=== PATIENT | female | born 1945 | race Hispanic/Latino ===

== ENCOUNTER 2017-07-11 16:23 | Emergency (ER) | payer MEDICARE ==
[2017-07-11 18:00] LABS: Bilirubin,Urine NEG (Negative); Blood,Urine NEG (Negative); Color,Urine Straw (Yellow); Protein,Urine <15 mg/dL mg/dL (Negative); Urobilinogen,Urine < 2.0 mg/dL (<2.0); WBC,Urine < 1.0 /HPF (0.0-6.0)
[2017-07-11] MEDS ORDERED: MORPHINE IV ONE (18:02)
[2017-07-11] MEDS ORDERED: VALIUM PO ONE (18:02)
[2017-07-11 18:03] LABS: Basophils # (Auto) 0.1 K/mm3 (0.0-0.1); Basophils % (Auto) 0.4 % (0.0-1.8); Eosinophils # (Auto) 0.2 K/mm3 (0.0-0.4); Eosinophils % (Auto) 1.2 % (0.0-4.3); Hematocrit 40.1 % (30.3-42.9); Lymphocytes % (Auto) 15.3 % (13.4-35.0); Mean Corpuscular HGB Conc 32 % (30-34); Mean Corpuscular Hemoglobin 28 pg (28-32); Mean Corpuscular Volume 86 fl (79-97); Monocytes # (Auto) 0.7 K/mm3 (0.0-0.8); Monocytes % (Auto) 5.5 % (0.0-7.3); Platelet Count 283 K/mm3 (140-440); Red Blood Count 4.66 M/mm3 (3.65-5.03); Red Cell Distribution Width 17.4 % (13.2-15.2)
[2017-07-11] MEDS ORDERED: PROVENTIL IH ONE (18:05)
[2017-07-11] MEDS ORDERED: ATROVENT IH ONE (18:05)
--- NOTE | 2017-07-11 18:05 | Emergency Department Report ---
ED Back Pain/Injury HPI - General Chief Complaint: Back Pain/Injury Stated Complaint: BACK PAIN Time Seen by Provider: 07/11/17 17:54 Source: patient Limitations: Altered Mental Status - History of Present Illness Initial Comments: Patient is a 71-year-old female who is complaining of back pain. Patient states that she has chronic back pain secondary to 4 compression fractures that are chronic. Patient takes Gregory codon and morphine extended release at home but states that the Percocet she took today didn't help her pain. Patient denies any recent falls or trauma. Patient denies dysuria fever cough abdominal pain. Patient states pain is located in the right lower back she believes this is muscular because she is having a hard time moving. Patient was unable to stand up unassisted today. Patient also has a history of COPD and is on oxygen most of the time. Patient is due for breathing treatments today she has mild shortness of breath. Place: home Radiation: none Severity scale (0 -10): 10 Quality: aching Consistency: constant - Related Data Home Medications Medication Instructions Recorded Confirmed Last Taken Insulin NPH/Regular [NovoLIN 70/30] 0 units SUB-Q PRN PRN 02/27/13 12/23/14 Unknown Morphine ER [Ms Contin ER] 1 tab Q6HR 02/27/13 12/23/14 Unknown Oxycodone HCl/Acetaminophen 1 each PO Q6HR PRN 02/27/13 12/23/14 Unknown [Percocet 10/325 mg] Warfarin Sodium [Jantoven] 5 mg PO QDAY 02/27/13 12/23/14 06/13/14 12:00 ALBUTEROL Inhaler [ProAir HFA 2 puff IH QID PRN 06/14/14 12/23/14 Unknown Inhaler] Gabapentin 300 mg PO BID 06/14/14 12/23/14 Unknown NexIUM 1 tab PO DAILY 07/27/14 12/23/14 Unknown Augmentin 500 MG TAB 1 tab PO BID 11/11/14 12/23/14 Unknown Previous Rx's Medication Instructions Recorded Last Taken Type Diazepam [Valium] 5 mg PO TID PRN #12 tablet 07/11/17 Unknown Rx Allergies Allergy/AdvReac Type Severity Reaction Status Date / Time levofloxacin [From Levaquin] Allergy Rash Verified 02/27/13 19:34 sulfamethoxazole Allergy Hives Verified 11/11/14 11:38 [From Bactrim] trimethoprim [From Bactrim] Allergy Hives Verified 11/11/14 11:38 ED Review of Systems ROS: Stated complaint: BACK PAIN Other details as noted in HPI Comment: All other systems reviewed and negative ED Past Medical Hx - Past Medical History Previous Medical History?: Yes Hx Diabetes: Yes Hx Deep Vein Thrombosis: Yes Hx Arthritis: Yes Hx COPD: Yes Additional medical history: PVD-reportedly takes warfarin for this - Surgical History Past Surgical History?: Yes Additional Surgical History: L mastectomy, bilateral lower extremity embolectomy 1995 - Social History Smoking Status: Current Every Day Smoker Substance Use Type: Alcohol, Prescribed - Medications Home Medications: Home Medications Medication Instructions Recorded Confirmed Last Taken Type Insulin NPH/Regular [NovoLIN 70/30] 0 units SUB-Q PRN PRN 02/27/13 12/23/14 Unknown History Morphine ER [Ms Contin ER] 1 tab Q6HR 02/27/13 12/23/14 Unknown History Oxycodone HCl/Acetaminophen 1 each PO Q6HR PRN 02/27/13 12/23/14 Unknown History [Percocet 10/325 mg] Warfarin Sodium [Jantoven] 5 mg PO QDAY 02/27/13 12/23/14 06/13/14 12:00 History ALBUTEROL Inhaler [ProAir HFA 2 puff IH QID PRN 06/14/14 12/23/14 Unknown History Inhaler] Gabapentin 300 mg PO BID 06/14/14 12/23/14 Unknown History NexIUM 1 tab PO DAILY 07/27/14 12/23/14 Unknown History Augmentin 500 MG TAB 1 tab PO BID 11/11/14 12/23/14 Unknown History Diazepam [Valium] 5 mg PO TID PRN #12 tablet 07/11/17 Unknown Rx ED Physical Exam - General Limitations: Altered Mental Status General appearance: alert, in no apparent distress - Head Head exam: Present: atraumatic, normocephalic - Eye Eye exam: Present: normal appearance - ENT ENT exam: Present: mucous membranes moist - Neck Neck exam: Present: normal inspection - Respiratory Respiratory exam: Present: wheezes. Absent: normal lung sounds bilaterally, respiratory distress, rales - Cardiovascular Cardiovascular Exam: Present: regular rate, normal rhythm. Absent: systolic murmur, diastolic murmur, rubs, gallop - GI/Abdominal GI/Abdominal exam: Present: soft, normal bowel sounds. Absent: distended, tenderness, guarding, rebound - Extremities Exam Extremities exam: Present: normal inspection - Back Exam Back exam: Present: normal inspection - Neurological Exam Neurological exam: Present: alert, oriented X3 - Psychiatric Psychiatric exam: Present: normal affect, normal mood - Skin Skin exam: Present: warm, dry, intact, normal color. Absent: rash ED Course Vital Signs 07/11/17 07/11/17 07/11/17 18:08 18:20 18:31 Temperature 97.8 F Pulse Rate 91 H Pulse Rate [ Anterior Bilateral Throughout] Respiratory 20 Rate Respiratory Rate [Anterior Bilateral Throughout] Blood Pressure 135/71 119/56 Blood Pressure 135/71 [Left] O2 Sat by Pulse 98 99 Oximetry 07/11/17 07/11/17 18:49 19:00 Temperature Pulse Rate Pulse Rate [ 94 H Anterior Bilateral Throughout] Respiratory Rate Respiratory 20 Rate [Anterior Bilateral Throughout] Blood Pressure 126/57 Blood Pressure [Left] O2 Sat by Pulse 100 Oximetry - Reevaluation(s) Reevaluation #1: 07/11/17 19:38 Patient's back pain has improved after pain meds and Valium. Patient has received a nebulized treatment and her wheezing is improved and she is no longer feeling short of breath. Patient be discharged home will add Valium to her pain regimen should be discharged home ED Medical Decision Making - Lab Data Result diagrams: 07/11/17 17:49 07/11/17 17:49 Critical care attestation.: If time is entered above; I have spent that time in minutes in the direct care of this critically ill patient, excluding procedure time. ED Disposition Clinical Impression: COPD exacerbation Chronic back pain Qualifiers: Back pain location: low back pain Back pain laterality: right Sciatica presence : without sciatica Qualified Code(s): M54.5 - Low back pain; G89.29 - Other chronic pain Disposition: - TO HOME OR SELFCARE Is pt being admited?: No Does the pt Need Aspirin: No Condition: Stable Instructions: Chronic Obstructive Pulmonary Disease (ED), Low Back Strain (ED) Prescriptions: Diazepam [Valium] 5 mg PO TID PRN #12 tablet PRN Reason: Spasms Referrals: GISELE TABARES MD [Primary Care Provider] - 3-5 Days
[2017-07-11 18:08] LABS: BUN/Creatinine Ratio 22; Blood Urea Nitrogen 11 mg/dL (7-17); Calcium 8.6 mg/dL (8.4-10.2); Hemolysis Index 33
--- NOTE | 2017-07-11 19:07 | XRay Report ---
FINAL REPORT PROCEDURE: Portable chest x-ray TECHNIQUE: Chest radiograph portable AP view. CPT 16937 HISTORY: ABY COMPARISON: No prior studies are available for comparison. FINDINGS: Heart size and pulmonary vasculature appear normal. Lungs appear hyperinflated. Interstitial markings appear coarsened suggesting mild fibrosis. No focal infiltrates masses or effusions are identified. Large hiatal hernia appears to be present. Bones are diffusely demineralized. IMPRESSION: COPD suspected with mild fibrosis. No focal infiltrates are seen. Large hiatal hernia. Osteoporosis..
[2017-07-12 00:03] VITALS: BP 128/76
== END 2017-07-12 00:49 | disposition home or self-care (01) ==
LOC: ED 16:23
DX: J44.1 Chronic obstructive pulmonary disease with (acute) exacerbation (principal); M54.5 Low back pain; G89.29 Other chronic pain
CPT/HCPCS: 36415; 71045; 80048; 81001; 85025; 96374; 99284; J2270

== ENCOUNTER 2017-09-28 02:58 | Inpatient (IN) | payer MEDICARE ==
[2017-09-28] MEDS ORDERED: TYLENOL PO ONE (03:31)
[2017-09-28 04:18] LABS: Alanine Aminotransferase 9 units/L (7-56); Albumin 3.7 g/dL (3.9-5); BUN/Creatinine Ratio 25; Blood Urea Nitrogen 10 mg/dL (7-17); Calcium 8.4 mg/dL (8.4-10.2); Hemolysis Index 0
[2017-09-28 04:23] LABS: Bilirubin,Urine NEG (Negative); Blood,Urine NEG (Negative); Color,Urine Yellow (Yellow); Protein,Urine <15 mg/dL mg/dL (Negative); Urobilinogen,Urine < 2.0 mg/dL (<2.0)
[2017-09-28 04:24] LABS: Hematocrit 26.3 % (30.3-42.9); Hemoglobin 7.9 gm/dl (10.1-14.3); Mean Corpuscular HGB Conc 30 % (30-34); Mean Corpuscular Volume 75 fl (79-97); Platelet Count 355 K/mm3 (140-440); Red Blood Count 3.51 M/mm3 (3.65-5.03)
[2017-09-28 04:25] LABS: Mean Corpuscular Hemoglobin 23 pg (28-32)
--- NOTE | 2017-09-28 04:33 | XRay Report ---
FINAL REPORT PROCEDURE: XR CHEST 1V AP TECHNIQUE: Chest radiograph anteroposterior view. CPT 24355 HISTORY: ABY COMPARISON: 07/11/2017 FINDINGS: Heart: Normal. Mediastinum/Vessels: There is a soft tissue density in the retrocardiac space, a hiatal hernia is noted.. Lungs/Pleural space: COPD with mild fibrosis. No consolidation or effusion. Bony thorax: Moderate degenerative changes of the thoracic spine. There is generalized osteopenia.. Life support devices: None. IMPRESSION: There is no evidence of an acute cardiopulmonary process. Mild COPD..
[2017-09-28 05:28] LABS: Anisocytosis 1+; Band Neutrophils # (Manual) 2.4 K/mm3; Hypochromasia 1+; Platelet Estimate Consistent w Auto; Total Cells Counted 100
[2017-09-28] MEDS ORDERED: ZOSYN/NS 4.5GM/100ML 4.5 GM/100 ML VIAL IV SCH (06:00)
[2017-09-28] MEDS ORDERED: DUONEB *Not for PRN Use IH ONE ×2 (07:01→08:43)
--- NOTE | 2017-09-28 07:13 | Emergency Department Report ---
ED Shortness of Breath HPI - General Chief Complaint: Dyspnea/Respdistress Stated Complaint: ABY Time Seen by Provider: 09/28/17 06:30 Source: EMS Mode of arrival: Stretcher Limitations: No Limitations - History of Present Illness Initial Comments: Patient presents with progressive fever and shortness of breath, with past history of COPD, secondary smoking, which is still active. Patient uses home oxygen, but this has not helped, she's developed congestion, difficult breathing , shortness of breath, and has been febrile with cough today. Past medical history includes tobacco abuse and COPD, prior venous thrombus embolism, and diabetes mellitus. She also has a past history of left breast cancer with mastectomy. Onset/Timin -: Gradual, days(s) Improves With: rest Worsens With: exertion Known History Of: COPD, DVT Associated Symptoms: fever, cough Treatments Prior to Arrival: none - Related Data Home Oxygen Therapy: Yes Home Oxygen Amount: 2 Liters Home Medications Medication Instructions Recorded Confirmed Last Taken Insulin NPH/Regular [NovoLIN 70/30] 0 units SUB-Q PRN PRN 02/27/13 12/23/14 Unknown Morphine ER [Ms Contin ER] 1 tab Q6HR 02/27/13 12/23/14 Unknown Oxycodone HCl/Acetaminophen 1 each PO Q6HR PRN 02/27/13 12/23/14 Unknown [Percocet 10/325 mg] Warfarin Sodium [Jantoven] 5 mg PO QDAY 02/27/13 12/23/14 06/13/14 12:00 ALBUTEROL Inhaler [ProAir HFA 2 puff IH QID PRN 06/14/14 12/23/14 Unknown Inhaler] Gabapentin 300 mg PO BID 06/14/14 12/23/14 Unknown NexIUM 1 tab PO DAILY 07/27/14 12/23/14 Unknown Augmentin 500 MG TAB 1 tab PO BID 11/11/14 12/23/14 Unknown Previous Rx's Medication Instructions Recorded Last Taken Type Diazepam [Valium] 5 mg PO TID PRN #12 tablet 07/11/17 Unknown Rx Allergies Allergy/AdvReac Type Severity Reaction Status Date / Time levofloxacin [From Levaquin] Allergy Rash Verified 02/27/13 19:34 sulfamethoxazole Allergy Hives Verified 11/11/14 11:38 [From Bactrim] trimethoprim [From Bactrim] Allergy Hives Verified 11/11/14 11:38 ED Review of Systems ROS: Stated complaint: ABY Other details as noted in HPI Comment: All other systems reviewed and negative Constitutional: chills, diaphoresis, fever, malaise, weakness ENT: denies: ear pain, throat pain Respiratory: cough, shortness of breath, SOB at rest, wheezing Cardiovascular: dyspnea on exertion. denies: chest pain, palpitations Endocrine: no symptoms reported Gastrointestinal: denies: abdominal pain, nausea, diarrhea Genitourinary: denies: urgency, dysuria, discharge Musculoskeletal: denies: back pain, joint swelling, arthralgia Skin: denies: rash Neurological: denies: headache, weakness, paresthesias Psychiatric: denies: anxiety, depression Hematological/Lymphatic: denies: easy bleeding, easy bruising ED Past Medical Hx - Past Medical History Previous Medical History?: Yes Hx Diabetes: Yes Hx Deep Vein Thrombosis: Yes Hx Arthritis: Yes Hx COPD: Yes Additional medical history: PVD-reportedly takes warfarin for this - Surgical History Past Surgical History?: Yes Additional Surgical History: L mastectomy, bilateral lower extremity embolectomy 1995 - Social History Smoking Status: Current Every Day Smoker Substance Use Type: Prescribed - Medications Home Medications: Home Medications Medication Instructions Recorded Confirmed Last Taken Type Insulin NPH/Regular [NovoLIN 70/30] 0 units SUB-Q PRN PRN 02/27/13 12/23/14 Unknown History Morphine ER [Ms Contin ER] 1 tab Q6HR 02/27/13 12/23/14 Unknown History Oxycodone HCl/Acetaminophen 1 each PO Q6HR PRN 02/27/13 12/23/14 Unknown History [Percocet 10/325 mg] Warfarin Sodium [Jantoven] 5 mg PO QDAY 02/27/13 12/23/14 06/13/14 12:00 History ALBUTEROL Inhaler [ProAir HFA 2 puff IH QID PRN 06/14/14 12/23/14 Unknown History Inhaler] Gabapentin 300 mg PO BID 06/14/14 12/23/14 Unknown History NexIUM 1 tab PO DAILY 07/27/14 12/23/14 Unknown History Augmentin 500 MG TAB 1 tab PO BID 11/11/14 12/23/14 Unknown History Diazepam [Valium] 5 mg PO TID PRN #12 tablet 07/11/17 Unknown Rx ED Physical Exam - General Limitations: No Limitations General appearance: alert, in distress (short of breath, febrile), cachectic, other (frail, chronically ill-appearing, marked kyphosis) - Head Head exam: Present: atraumatic, normocephalic - Eye Eye exam: Present: PERRL - ENT ENT exam: Present: mucous membranes dry - Neck Neck exam: Present: other (kyphotic curvature). Absent: tenderness - Respiratory Respiratory exam: Present: respiratory distress, wheezes, rales, rhonchi, accessory muscle use. Absent: chest wall tenderness - Cardiovascular Cardiovascular Exam: Present: regular rate, tachycardia - GI/Abdominal GI/Abdominal exam: Present: soft, normal bowel sounds. Absent: tenderness - Rectal Rectal exam: Present: deferred - Extremities Exam Extremities exam: Present: other (chronic changes of venous insufficiency, especially right lower extremity). Absent: pedal edema - Back Exam Back exam: Present: normal inspection. Absent: CVA tenderness (R), CVA tenderness (L) - Neurological Exam Neurological exam: Present: alert, oriented X3, CN II-XII intact, other ( generally weak, global). Absent: motor sensory deficit - Psychiatric Psychiatric exam: Present: anxious - Skin Skin exam: Present: intact, diaphoretic, other (poor turgor) ED Course Vital Signs 09/28/17 09/28/17 09/28/17 03:07 03:15 03:30 Temperature 39.2 C H Pulse Rate 118 H 115 H 124 H Pulse Rate [ Anterior] Respiratory 35 H 28 H 39 H Rate Respiratory Rate [Anterior] Blood Pressure 113/54 113/54 125/66 O2 Sat by Pulse 95 96 96 Oximetry 09/28/17 09/28/17 09/28/17 03:45 04:00 04:15 Temperature Pulse Rate 125 H 113 H 107 H Pulse Rate [ Anterior] Respiratory 25 H 27 H 22 Rate Respiratory Rate [Anterior] Blood Pressure 125/66 110/49 110/49 O2 Sat by Pulse 96 96 97 Oximetry 09/28/17 09/28/17 09/28/17 04:30 04:45 05:00 Temperature Pulse Rate 102 H 103 H 95 H Pulse Rate [ Anterior] Respiratory 22 20 20 Rate Respiratory Rate [Anterior] Blood Pressure 101/49 110/49 103/49 O2 Sat by Pulse 98 98 98 Oximetry 09/28/17 09/28/17 09/28/17 05:15 05:30 05:45 Temperature Pulse Rate 93 H 92 H 91 H Pulse Rate [ Anterior] Respiratory 19 18 18 Rate Respiratory Rate [Anterior] Blood Pressure 101/49 105/54 103/49 O2 Sat by Pulse 98 98 99 Oximetry 09/28/17 09/28/17 09/28/17 06:00 06:15 06:30 Temperature Pulse Rate 85 91 H 86 Pulse Rate [ Anterior] Respiratory 17 15 18 Rate Respiratory Rate [Anterior] Blood Pressure 109/55 103/49 118/61 O2 Sat by Pulse 99 100 99 Oximetry 09/28/17 09/28/17 09/28/17 06:44 06:45 07:00 Temperature 37.4 C Pulse Rate 82 92 H Pulse Rate [ Anterior] Respiratory 18 15 Rate Respiratory Rate [Anterior] Blood Pressure 109/55 113/62 O2 Sat by Pulse 98 98 Oximetry 09/28/17 09/28/17 09/28/17 07:10 07:15 07:28 Temperature Pulse Rate 89 Pulse Rate [ 85 83 Anterior] Respiratory 24 Rate Respiratory 21 20 Rate [Anterior] Blood Pressure 118/61 O2 Sat by Pulse 98 Oximetry 09/28/17 09/28/17 09/28/17 07:30 07:45 08:00 Temperature Pulse Rate 84 84 81 Pulse Rate [ Anterior] Respiratory 18 19 19 Rate Respiratory Rate [Anterior] Blood Pressure 103/46 103/46 92/39 O2 Sat by Pulse 98 97 97 Oximetry 09/28/17 09/28/17 09/28/17 08:15 08:30 08:45 Temperature Pulse Rate 81 79 80 Pulse Rate [ Anterior] Respiratory 15 16 17 Rate Respiratory Rate [Anterior] Blood Pressure 92/39 95/52 97/51 O2 Sat by Pulse 98 99 100 Oximetry - Reevaluation(s) Reevaluation #1: 09/28/17 09:35 Patient was little improved with initial breathing treatment, but on supplemental oxygen had stable oxygen saturation of 94-97%. Patient was treated for fever, and repeat temperature was 37.4 C. ED Medical Decision Making - Lab Data Result diagrams: 09/28/17 03:42 09/28/17 03:42 - Radiology Data Radiology results: report reviewed (no acute consolidation seen in lung fortune) - Medical Decision Making This frail elderly woman with shortness of breath and fever, is significantly ill, been febrile, elevated white count with bandemia, and although chest x-ray does not show acute consolidation, clearly has a pulmonary infection, with respiratory distress worsening, and bilateral wheezes. She will need hospitalization, as she will likely show signs of a pneumonia that she clearly clinically has today. - Differential Diagnosis pneumonia, heart failure, sepsis Critical Care Time: Yes Critical care attestation.: If time is entered above; I have spent that time in minutes in the direct care of this critically ill patient, excluding procedure time. Critical Care Time: 60 minutes of critical care time was provided in assessing patient's condition, evaluated for possible sepsis, treated empirically for likely pneumonia and underlying risk for sepsis, as well as stabilizing patient's respiratory status with acute shortness of breath and hypoxemia on room air. ED Disposition Clinical Impression: Respiratory distress, COPD exacerbation, Bronchitis, chronic with acute exacerbation, Hypoxemia, Shortness of breath Disposition: OP ADMIT IP TO THIS HOSP Is pt being admited?: Yes Does the pt Need Aspirin: No Condition: Stable Instructions: Chronic Obstructive Pulmonary Disease (ED), Chronic Bronchitis ( ED) Referrals: GISELE TABARES MD [Primary Care Provider] - 3-5 Days Time of Disposition: 08:15
[2017-09-28] MEDS ORDERED: NACL 0.9% 1000 ML 1,000 ML IV ONE (08:19)
[2017-09-28] MEDS ORDERED: NACL 0.9% 1000 ML 1,000 ML ONE (08:29)
[2017-09-28] MEDS: NACL 0.9% 1000 ML 1,000 ML IV SCH ×2 (08:46→22:33)
[2017-09-28] MEDS ORDERED: SODIUM CHLORIDE FLUSH SYRINGE 10 ML IV PRN (09:18)
[2017-09-28] MEDS ORDERED: ZOFRAN IV PRN ×2 (09:18→09:38)
[2017-09-28] MEDS ORDERED: TYLENOL PO PRN ×2 (09:18→09:38)
[2017-09-28] MEDS ORDERED: PROAIR IH PRN (09:20)
[2017-09-28] MEDS ORDERED: NON-FORMULARY (Oxycodone Hcl/Acetaminophen [Percocet 10/325 Mg] 1 EACH) PO PRN (09:20)
--- NOTE | 2017-09-28 09:25 | History and Physical Report ---
History of Present Illness Date of examination: 09/28/17 Chief complaint: Couldn't breath History of present illness: 72 year old female with past medical history significant for COPD, diabetes mellitus, CHF presented to the emergency department complaining of " I couldn't breath since this morning". Patient said she has also cough which is productive of greenish sputum associated with fever. Patient denied any fever or chills, chest pain. Patient said she was taking her COPD medications as ordered. REVIEW OF SYSTEMS: GENERAL: no weight change, no fatigue, no fever HEAD: no head ache EYES: no blurry vision, no acute visual loss EARS: no hearing loss, no discharge, no earache NOSE: no stuffiness, no sneezing, no discharge MOUTH, THROAT AND NECK: no bleeding gums, no sore throat, no swollen neck CARDIAC: no palpitations, no dyspnea on exertion, no orthopnea, no PND, no edema , no chest pain RESPIRATORY: As stated in the HPI. GI: no decreased appetite, no nausea, no vomiting, no dysphagia, no diarrhea, no constipation, no abdominal pain URINARY: no change in frequency, no urgency, no polyuria, no hematuria, no incontinence MUSCULOSKELETAL: no muscle weakness, no pain, no joint stiffness NEUROLOGIC: no loss of sensation/numbness, no tingling, no tremors, no weakness/ paralysis HEMATOLOGIC: no anemia, no easy bruising SKIN: no rashes ENDOCRINE: no heat/cold intolerance, no polyuria, no polydipsia, no thyroid problems. PSYCHIATRIC: no anxiety, no depression, no suicidal ideations Past History Past Medical History: COPD, diabetes, heart failure Past Surgical History: Other (throbectomy) Social history: full code. denies: smoking, alcohol abuse, prescription drug abuse, IV drug use Family history: no significant family history Medications and Allergies Allergies Allergy/AdvReac Type Severity Reaction Status Date / Time levofloxacin [From Levaquin] Allergy Rash Verified 02/27/13 19:34 sulfamethoxazole Allergy Hives Verified 11/11/14 11:38 [From Bactrim] trimethoprim [From Bactrim] Allergy Hives Verified 11/11/14 11:38 Home Medications Medication Instructions Recorded Confirmed Last Taken Type Insulin NPH/Regular [NovoLIN 70/30] 0 units SUB-Q PRN PRN 02/27/13 12/23/14 Unknown History Morphine ER [Ms Contin ER] 1 tab Q6HR 02/27/13 12/23/14 Unknown History Oxycodone HCl/Acetaminophen 1 each PO Q6HR PRN 02/27/13 12/23/14 Unknown History [Percocet 10/325 mg] Warfarin Sodium [Jantoven] 5 mg PO QDAY 02/27/13 12/23/14 06/13/14 12:00 History ALBUTEROL Inhaler [ProAir HFA 2 puff IH QID PRN 06/14/14 12/23/14 Unknown History Inhaler] Gabapentin 300 mg PO BID 06/14/14 12/23/14 Unknown History NexIUM 1 tab PO DAILY 07/27/14 12/23/14 Unknown History Augmentin 500 MG TAB 1 tab PO BID 11/11/14 12/23/14 Unknown History Diazepam [Valium] 5 mg PO TID PRN #12 tablet 07/11/17 Unknown Rx Active Meds: Active Medications Acetaminophen (Tylenol) 650 mg PO Q4H PRN PRN Reason: Pain MILD(1-3)/Fever >100.5/MCKENZIE Albuterol (Proair) 2 puff IH QID PRN PRN Reason: Shortness Of Breath Albuterol/Ipratropium (Duoneb *Not For Prn Use*) 1 ampul IH QIDRT [facility] Budesonide (Pulmicort) 0.5 mg IH Q12HRT [facility] Diazepam (Valium) 5 mg PO TID PRN PRN Reason: Spasms Docusate Sodium (Colace) 100 mg PO BID [facility] Famotidine (Pepcid) 20 mg PO BID [facility] Gabapentin (Neurontin) 300 mg PO BID [facility] Sodium Chloride (Nacl 0.9% 1000 Ml) 1,000 mls @ 125 mls/hr IV DIRECT [facility] Last Admin: 09/28/17 08:46 Dose: 125 mls/hr Azithromycin 500 mg/ Sodium (Chloride) 250 mls @ 250 mls/hr IV Q24HR G[facility]; Protocol Ceftriaxone Sodium (Rocephin/Ns 1 Gm/50 Ml) 1 gm in 50 mls @ 100 mls/hr IV Q24HR [facility]; Protocol Methylprednisolone Sodium Succinate (Solu-Medrol) 60 mg IV QID [facility] Miscellaneous Medication (Nexium) 1 tab PO DAILY [facility] Miscellaneous Medication (Oxycodone Hcl/Acetaminophen [Percocet 10/325 Mg]) 1 each PO Q6HR PRN PRN Reason: Pain Morphine Sulfate (Ms Contin Er) mg PO BID [facility] Ondansetron HCl (Zofran) 4 mg IV Q8H PRN PRN Reason: Nausea And Vomiting Sodium Chloride (Sodium Chloride Flush Syringe 10 Ml) 10 ml IV BID [facility] Sodium Chloride (Sodium Chloride Flush Syringe 10 Ml) 10 ml IV PRN PRN PRN Reason: LINE FLUSH Exam - Physical Exam Narrative exam: Patient is on respiratory distress, on Ventimask The patient appeared well nourished and normally developed. Vital signs as documented. Head exam is unremarkable. No scleral icterus . Neck is without jugular venous distension, thyromegaly, or carotid bruits. Lungs wheezing gone over the chest. Cardiac exam reveals regular rate and Rhythm. First and second heart sounds normal. No murmurs, rubs or gallops. Abdominal exam reveals normal bowel sounds, no masses, no organomegaly and no aortic enlargement. Extremities are nonedematous and both femoral and pedal pulses are normal. TEA TASTER: Alert and oriented 3. No focal weakness. - Constitutional Vitals: Temp Pulse Resp BP Pulse Ox 99.3 F 80 17 97/51 100 09/28/17 06:44 09/28/17 08:45 09/28/17 08:45 09/28/17 08:45 09/28/17 08:45 Results - Labs CBC & Chem 7: 09/28/17 03:42 09/28/17 03:42 Labs: Laboratory Last Values WBC 18.6 K/mm3 (4.5-11.0) H 09/28/17 03:42 RBC 3.51 M/mm3 (3.65-5.03) L 09/28/17 03:42 Hgb 7.9 gm/dl (10.1-14.3) L 09/28/17 03:42 Hct 26.3 % (30.3-42.9) L 09/28/17 03:42 MCV 75 fl (79-97) L 09/28/17 03:42 MCH 23 pg (28-32) L 09/28/17 03:42 MCHC 30 % (30-34) 09/28/17 03:42 RDW 19.0 % (13.2-15.2) H 09/28/17 03:42 Plt Count 355 K/mm3 (140-440) 09/28/17 03:42 Add Manual Diff Complete 09/28/17 03:42 Total Counted 100 09/28/17 03:42 Seg Neutrophils % Mission Coordinator 09/28/17 03:42 Seg Neuts % (Manual) 77.0 % (40.0-70.0) H 09/28/17 03:42 Band Neutrophils % 13.0 % 09/28/17 03:42 Lymphocytes % (Manual) 5.0 % (13.4-35.0) L 09/28/17 03:42 Reactive Lymphs % (Man) 0 % 09/28/17 03:42 Monocytes % (Manual) 2.0 % (0.0-7.3) 09/28/17 03:42 Eosinophils % (Manual) 2.0 % (0.0-4.3) 09/28/17 03:42 Basophils % (Manual) 1.0 % (0.0-1.8) 09/28/17 03:42 Metamyelocytes % 0 % 09/28/17 03:42 Myelocytes % 0 % 09/28/17 03:42 Promyelocytes % 0 % 09/28/17 03:42 Blast Cells % 0 % 09/28/17 03:42 Nucleated RBC % 1.0 % (0.0-0.9) H 09/28/17 03:42 Seg Neutrophils # Man 14.3 K/mm3 (1.8-7.7) H 09/28/17 03:42 Band Neutrophils # 2.4 K/mm3 09/28/17 03:42 Lymphocytes # (Manual) 0.9 K/mm3 (1.2-5.4) L 09/28/17 03:42 Abs React Lymphs (Man) 0.0 K/mm3 09/28/17 03:42 Monocytes # (Manual) 0.4 K/mm3 (0.0-0.8) 09/28/17 03:42 Eosinophils # (Manual) 0.4 K/mm3 (0.0-0.4) 09/28/17 03:42 Basophils # (Manual) 0.2 K/mm3 (0.0-0.1) H 09/28/17 03:42 Metamyelocytes # 0.0 K/mm3 09/28/17 03:42 Myelocytes # 0.0 K/mm3 09/28/17 03:42 Promyelocytes # 0.0 K/mm3 09/28/17 03:42 Blast Cells # 0.0 K/mm3 09/28/17 03:42 WBC Morphology Not Reportable 09/28/17 03:42 Hypersegmented Neuts Not Reportable 09/28/17 03:42 Hyposegmented Neuts Not Reportable 09/28/17 03:42 Hypogranular Neuts Not Reportable 09/28/17 03:42 Smudge Cells Not Reportable 09/28/17 03:42 Toxic Granulation Not Reportable 09/28/17 03:42 Toxic Vacuolation Not Reportable 09/28/17 03:42 Dohle Bodies Not Reportable 09/28/17 03:42 Pelger-Huet Anomaly Not Reportable 09/28/17 03:42 Jhon Rods Not Reportable 09/28/17 03:42 Platelet Estimate Consistent w auto 09/28/17 03:42 Clumped Platelets Not Reportable 09/28/17 03:42 Plt Clumps, EDTA Not Reportable 09/28/17 03:42 Large Platelets Not Reportable 09/28/17 03:42 Giant Platelets Not Reportable 09/28/17 03:42 Platelet Satelliting Not Reportable 09/28/17 03:42 Plt Morphology Comment Not Reportable 09/28/17 03:42 RBC Morphology Not Reportable 09/28/17 03:42 Dimorphic RBCs Not Reportable 09/28/17 03:42 Polychromasia Not Reportable 09/28/17 03:42 Hypochromasia 1+ 09/28/17 03:42 Poikilocytosis Not Reportable 09/28/17 03:42 Anisocytosis 1+ 09/28/17 03:42 Microcytosis Not Reportable 09/28/17 03:42 Macrocytosis Not Reportable 09/28/17 03:42 Spherocytes Not Reportable 09/28/17 03:42 Pappenheimer Bodies Not Reportable 09/28/17 03:42 Sickle Cells Not Reportable 09/28/17 03:42 Target Cells Not Reportable 09/28/17 03:42 Tear Drop Cells Not Reportable 09/28/17 03:42 Ovalocytes Not Reportable 09/28/17 03:42 Helmet Cells Not Reportable 09/28/17 03:42 [place] Bodies Not Reportable 09/28/17 03:42 [place] Rings Not Reportable 09/28/17 03:42 [place] Cells Not Reportable 09/28/17 03:42 Bite Cells Not Reportable 09/28/17 03:42 Crenated Cell Not Reportable 09/28/17 03:42 Elliptocytes Not Reportable 09/28/17 03:42 Acanthocytes (Spur) Not Reportable 09/28/17 03:42 Rouleaux Not Reportable 09/28/17 03:42 Hemoglobin C Crystals Not Reportable 09/28/17 03:42 Schistocytes Not Reportable 09/28/17 03:42 Malaria parasites Not Reportable 09/28/17 03:42 Rodney Bodies Not Reportable 09/28/17 03:42 Hem Pathologist Commnt No 09/28/17 03:42 Sodium 137 mmol/L (137-145) 09/28/17 03:42 Potassium 4.3 mmol/L (3.6-5.0) 09/28/17 03:42 Chloride 95.0 mmol/L (98-107) L 09/28/17 03:42 Carbon Dioxide 33 mmol/L (22-30) H 09/28/17 03:42 Anion Gap 13 mmol/L 09/28/17 03:42 BUN 10 mg/dL (7-17) 09/28/17 03:42 Creatinine 0.4 mg/dL (0.7-1.2) L 09/28/17 03:42 Estimated GFR > 60 ml/min 09/28/17 03:42 BUN/Creatinine Ratio 25 % 09/28/17 03:42 Glucose 202 mg/dL (65-100) H 09/28/17 03:42 Lactic Acid 0.90 mmol/L (0.7-2.0) 09/28/17 07:46 Calcium 8.4 mg/dL (8.4-10.2) 09/28/17 03:42 Total Bilirubin 0.30 mg/dL (0.1-1.2) 09/28/17 03:42 AST 13 units/L (5-40) 09/28/17 03:42 ALT 9 units/L (7-56) 09/28/17 03:42 Alkaline Phosphatase 84 units/L (35-129) 09/28/17 03:42 Troponin T < 0.010 ng/mL (0.00-0.029) 09/28/17 03:42 Total Protein 5.9 g/dL (6.3-8.2) L 09/28/17 03:42 Albumin 3.7 g/dL (3.9-5) L 09/28/17 03:42 Albumin/Globulin Ratio 1.7 % 09/28/17 03:42 Urine Color Yellow (Yellow) 09/28/17 03:30 Urine Turbidity Clear (Clear) 09/28/17 03:30 Urine pH 7.0 (5.0-7.0) 09/28/17 03:30 Ur Specific [place] 1.012 (1.003-1.030) 09/28/17 03:30 Urine Protein <15 mg/dl mg/dL (Negative) 09/28/17 03:30 Urine Glucose (UA) Neg mg/dL (Negative) 09/28/17 03:30 Urine Ketones Neg mg/dL (Negative) 09/28/17 03:30 Urine Blood Neg (Negative) 09/28/17 03:30 Urine Nitrite Neg (Negative) 09/28/17 03:30 Urine Bilirubin Neg (Negative) 09/28/17 03:30 Urine Urobilinogen < 2.0 mg/dL (<2.0) 09/28/17 03:30 Ur Leukocyte Esterase Neg (Negative) 09/28/17 03:30 Urine WBC (Auto) 1.0 /HPF (0.0-6.0) 09/28/17 03:30 Urine RBC (Auto) 1.0 /HPF (0.0-6.0) 09/28/17 03:30 U Epithel Cells (Auto) < 1.0 /HPF (0-13.0) 09/28/17 03:30 Blood Type A POSITIVE 09/28/17 04:00 Antibody Screen Negative 09/28/17 04:00 Assessment and Plan Assessment and plan: 72-year-old female was presented to the emergency department with complaints of shock couldn't breathe. Patient has cough productive of greenish sputum and fever. Acute hypercapnic respiratory failure COPD exacerbation Sepsis secondary to pneumonitis; chest x-ray significant for COPD, patient denies fever, tachycardia and tachypnea Diabetes mellitus with hyperglycemia Patient does history of DVT - Patient was placed on Ventimask, Solu-Medrol, IV antibiotics, nebulizers will follow closely - Sliding scale insulin for diabetes - Continue her home medications DVT prophylaxis - Continue Eliquis Disposition - Admit to telemetry floor Advance Directives: Yes VTE prophylaxis?: Chemical Plan of care discussed with patient/family: Yes
[2017-09-28] MEDS: NEURONTIN PO SCH (09:53)
[2017-09-28] MEDS ORDERED: ROCEPHIN/NS 1 GM/50 ML 1 GM/50 ML BAG IV SCH (10:00)
[2017-09-28] MEDS ORDERED: NEXIUM PO SCH (10:00)
[2017-09-28] MEDS ORDERED: PEPCID PO SCH (10:00)
[2017-09-28] MEDS ORDERED: PROVENTIL IH PRN (10:13)
[2017-09-28] MEDS ORDERED: PERCOCET 5/325 ONE (10:34)
[2017-09-28] MEDS: COLACE PO SCH ×2 (10:41→22:38)
[2017-09-28] MEDS: SODIUM CHLORIDE FLUSH SYRINGE 10 ML IV SCH (10:42)
[2017-09-28] MEDS: PERCOCET 5/325 PO PRN ×2 (10:44→18:08)
[2017-09-28] MEDS ORDERED: cefTRIAXone 1 GM in NACL 0.9% 20 ML IV ONE (11:00)
[2017-09-28] MEDS: ZITHROMAX 500 MG in NACL 0.9% 250ML 250 ML IV SCH (11:07)
[2017-09-28] MEDS: MS CONTIN ER PO SCH (11:37)
[2017-09-28] MEDS: VALIUM PO PRN (11:38)
[2017-09-28] MEDS: DUONEB *Not for PRN Use IH SCH ×3 (13:58→20:54)
[2017-09-28] MEDS: PULMICORT IH SCH ×2 (13:59→20:54)
[2017-09-28] MEDS ORDERED: D50W (25GM) Syringe IV PRN (15:18)
[2017-09-28] MEDS: HumaLOG SUB-Q SCH ×2 (18:09→22:37)
[2017-09-28] MEDS: ROXICODONE PO PRN (19:00)
[2017-09-28] MEDS ORDERED: LANTUS SUB-Q SCH (22:00)
[2017-09-28] MEDS: ELIQUIS PO SCH (22:38)
[2017-09-29] MEDS: MS CONTIN ER PO SCH ×3 (02:35→21:04)
[2017-09-29] MEDS: NEURONTIN PO SCH ×3 (02:36→21:05)
[2017-09-29] MEDS: NACL 0.9% 1000 ML 1,000 ML IV SCH ×2 (05:43→21:03)
[2017-09-29 06:32] LABS: BUN/Creatinine Ratio 38; Blood Urea Nitrogen 15 mg/dL (7-17); Calcium 8.2 mg/dL (8.4-10.2); Hemolysis Index 11
[2017-09-29 06:35] LABS: Hematocrit 23.3 % (30.3-42.9); Mean Corpuscular HGB Conc 30 % (30-34); Mean Corpuscular Volume 76 fl (79-97); Platelet Count 281 K/mm3 (140-440); Red Blood Count 3.09 M/mm3 (3.65-5.03); Red Cell Distribution Width 18.2 % (13.2-15.2)
[2017-09-29 06:41] LABS: Mean Corpuscular Hemoglobin 23 pg (28-32)
[2017-09-29 07:19] LABS: Total Cells Counted 100
[2017-09-29 07:20] LABS: Band Neutrophils # (Manual) 1.2 K/mm3; Basophils % (Manual) 0 % (0.0-1.8); Eosinophils % (Manual) 0 % (0.0-4.3); Hypochromasia 1+; Monocytes % (Manual) 0 % (0.0-7.3); Platelet Estimate Consistent w Auto
[2017-09-29] MEDS: HumaLOG SUB-Q SCH ×4 (07:35→21:11)
[2017-09-29] MEDS: DUONEB *Not for PRN Use IH SCH ×3 (07:47→20:04)
[2017-09-29] MEDS: PULMICORT IH SCH ×2 (07:47→20:04)
[2017-09-29] MEDS: ROXICODONE PO PRN ×2 (08:21→16:09)
[2017-09-29] MEDS: ELIQUIS PO SCH ×2 (10:00→21:05)
[2017-09-29] MEDS ORDERED: NACL 0.9% 500 ML 500 ML IV ONE (10:56)
[2017-09-29] MEDS: COLACE PO SCH ×2 (11:00→21:04)
[2017-09-29] MEDS: PROTONIX PO SCH (11:00)
--- NOTE | 2017-09-29 11:05 | Progress Note ---
Assessment and Plan Assessment and plan: 72-year-old female was presented to the emergency department with complaints of shock couldn't breathe. Patient has cough productive of greenish sputum and fever. Acute hypercapnic respiratory failure COPD exacerbation Sepsis secondary to pneumonitis; chest x-ray significant for COPD, patient had fever, tachycardia and tachypnea Diabetes mellitus with hyperglycemia Patient does history of DVT - Patient was placed on Ventimask, Solu-Medrol, IV antibiotics, nebulizers will follow closely - Sliding scale insulin for diabetes - Continue her home medications Patient has anemia hemoglobin this morning was 7, patient's tachypneic and I'll transfuse 1 unit of blood. We'll check H&H after transfusion. DVT prophylaxis - Continue Eliquis Disposition - Admit to telemetry floor History Interval history: Patient was seen and evaluated this morning, patient was still complaining shortness of breath. Patient is anemic. Hospitalist Physical - Physical exam Narrative exam: Patient is in mild respiratory distress. The patient appeared well nourished and normally developed. Vital signs as documented. Head exam is unremarkable. No scleral icterus . Neck is without jugular venous distension, thyromegaly, or carotid bruits. Lungs wheezing gone over the chest. Cardiac exam reveals regular rate and Rhythm. First and second heart sounds normal. No murmurs, rubs or gallops. Abdominal exam reveals normal bowel sounds, no masses, no organomegaly and no aortic enlargement. Extremities are nonedematous and both femoral and pedal pulses are normal. UNDER SHERIFF: Alert and oriented 3. No focal weakness. - Constitutional Vitals: Temp Pulse Resp BP Pulse Ox 97.7 F 78 18 113/65 100 09/29/17 07:22 09/29/17 08:20 09/29/17 08:20 09/29/17 07:22 09/29/17 10:29 Results - Labs CBC & Chem 7: 09/29/17 05:42 09/29/17 05:42 Labs: Laboratory Last Values WBC 17.3 K/mm3 (4.5-11.0) H 09/29/17 05:42 RBC 3.09 M/mm3 (3.65-5.03) L 09/29/17 05:42 Hgb 7.0 gm/dl (10.1-14.3) L 09/29/17 05:42 Hct 23.3 % (30.3-42.9) L 09/29/17 05:42 MCV 76 fl (79-97) L 09/29/17 05:42 MCH 23 pg (28-32) L 09/29/17 05:42 MCHC 30 % (30-34) 09/29/17 05:42 RDW 18.2 % (13.2-15.2) H 09/29/17 05:42 Plt Count 281 K/mm3 (140-440) 09/29/17 05:42 Add Manual Diff Complete 09/29/17 05:42 Total Counted 100 09/29/17 05:42 Seg Neutrophils % Inside Sales Assistant 09/29/17 05:42 Seg Neuts % (Manual) 91.0 % (40.0-70.0) H 09/29/17 05:42 Band Neutrophils % 7.0 % 09/29/17 05:42 Lymphocytes % (Manual) 2.0 % (13.4-35.0) L 09/29/17 05:42 Reactive Lymphs % (Man) 0 % 09/29/17 05:42 Monocytes % (Manual) 0 % (0.0-7.3) 09/29/17 05:42 Eosinophils % (Manual) 0 % (0.0-4.3) 09/29/17 05:42 Basophils % (Manual) 0 % (0.0-1.8) 09/29/17 05:42 Metamyelocytes % 0 % 09/29/17 05:42 Myelocytes % 0 % 09/29/17 05:42 Promyelocytes % 0 % 09/29/17 05:42 Blast Cells % 0 % 09/29/17 05:42 Nucleated RBC % Not Reportable 09/29/17 05:42 Seg Neutrophils # Man 15.7 K/mm3 (1.8-7.7) H 09/29/17 05:42 Band Neutrophils # 1.2 K/mm3 09/29/17 05:42 Lymphocytes # (Manual) 0.3 K/mm3 (1.2-5.4) L 09/29/17 05:42 Abs React Lymphs (Man) 0.0 K/mm3 09/29/17 05:42 Monocytes # (Manual) 0.0 K/mm3 (0.0-0.8) 09/29/17 05:42 Eosinophils # (Manual) 0.0 K/mm3 (0.0-0.4) 09/29/17 05:42 Basophils # (Manual) 0.0 K/mm3 (0.0-0.1) 09/29/17 05:42 Metamyelocytes # 0.0 K/mm3 09/29/17 05:42 Myelocytes # 0.0 K/mm3 09/29/17 05:42 Promyelocytes # 0.0 K/mm3 09/29/17 05:42 Blast Cells # 0.0 K/mm3 09/29/17 05:42 WBC Morphology Not Reportable 09/29/17 05:42 Hypersegmented Neuts Not Reportable 09/29/17 05:42 Hyposegmented Neuts Not Reportable 09/29/17 05:42 Hypogranular Neuts Not Reportable 09/29/17 05:42 Smudge Cells Not Reportable 09/29/17 05:42 Toxic Granulation Not Reportable 09/29/17 05:42 Toxic Vacuolation Not Reportable 09/29/17 05:42 Dohle Bodies Not Reportable 09/29/17 05:42 Pelger-Huet Anomaly Not Reportable 09/29/17 05:42 Jhon Rods Not Reportable 09/29/17 05:42 Platelet Estimate Consistent w auto 09/29/17 05:42 Clumped Platelets Not Reportable 09/29/17 05:42 Plt Clumps, EDTA Not Reportable 09/29/17 05:42 Large Platelets Not Reportable 09/29/17 05:42 Giant Platelets Not Reportable 09/29/17 05:42 Platelet Satelliting Not Reportable 09/29/17 05:42 Plt Morphology Comment Not Reportable 09/29/17 05:42 RBC Morphology Not Reportable 09/29/17 05:42 Dimorphic RBCs Not Reportable 09/29/17 05:42 Polychromasia Not Reportable 09/29/17 05:42 Hypochromasia 1+ 09/29/17 05:42 Poikilocytosis Not Reportable 09/29/17 05:42 Anisocytosis Not Reportable 09/29/17 05:42 Microcytosis Not Reportable 09/29/17 05:42 Macrocytosis Not Reportable 09/29/17 05:42 Spherocytes Not Reportable 09/29/17 05:42 Pappenheimer Bodies Not Reportable 09/29/17 05:42 Sickle Cells Not Reportable 09/29/17 05:42 Target Cells Not Reportable 09/29/17 05:42 Tear Drop Cells Not Reportable 09/29/17 05:42 Ovalocytes Not Reportable 09/29/17 05:42 Helmet Cells Not Reportable 09/29/17 05:42 [place] Bodies Not Reportable 09/29/17 05:42 [place] Rings Not Reportable 09/29/17 05:42 [place] Cells Not Reportable 09/29/17 05:42 Bite Cells Not Reportable 09/29/17 05:42 Crenated Cell Not Reportable 09/29/17 05:42 Elliptocytes 1+ 09/29/17 05:42 Acanthocytes (Spur) Not Reportable 09/29/17 05:42 Rouleaux Not Reportable 09/29/17 05:42 Hemoglobin C Crystals Not Reportable 09/29/17 05:42 Schistocytes Not Reportable 09/29/17 05:42 Malaria parasites Not Reportable 09/29/17 05:42 Rodney Bodies Not Reportable 09/29/17 05:42 Hem Pathologist Commnt No 09/29/17 05:42 POC ABG pH 7.438 (7.35-7.45) 09/28/17 11:52 POC ABG pCO2 51.4 (35-45) H 09/28/17 11:52 POC ABG pO2 85 (80-105) 09/28/17 11:52 POC ABG HCO3 34.8 09/28/17 11:52 POC ABG Total CO2 36 09/28/17 11:52 POC ABG O2 Sat 97 09/28/17 11:52 POC ABG Base Excess 11 09/28/17 11:52 FiO2 3 % 09/28/17 11:52 Sodium 140 mmol/L (137-145) 09/29/17 05:42 Potassium 4.5 mmol/L (3.6-5.0) 09/29/17 05:42 Chloride 100.5 mmol/L (98-107) 09/29/17 05:42 Carbon Dioxide 31 mmol/L (22-30) H 09/29/17 05:42 Anion Gap 13 mmol/L 09/29/17 05:42 BUN 15 mg/dL (7-17) 09/29/17 05:42 Creatinine 0.4 mg/dL (0.7-1.2) L 09/29/17 05:42 Estimated GFR > 60 ml/min 09/29/17 05:42 BUN/Creatinine Ratio 38 % 09/29/17 05:42 Glucose 227 mg/dL (65-100) H 09/29/17 05:42 POC Glucose 227 (70-105) H 09/29/17 05:46 Hemoglobin A1c 6.9 % (4-6) H 09/28/17 03:42 Lactic Acid 0.90 mmol/L (0.7-2.0) 09/28/17 07:46 Calcium 8.2 mg/dL (8.4-10.2) L 09/29/17 05:42 Total Bilirubin 0.30 mg/dL (0.1-1.2) 09/28/17 03:42 AST 13 units/L (5-40) 09/28/17 03:42 ALT 9 units/L (7-56) 09/28/17 03:42 Alkaline Phosphatase 84 units/L (35-129) 09/28/17 03:42 Troponin T < 0.010 ng/mL (0.00-0.029) 09/28/17 03:42 Total Protein 5.9 g/dL (6.3-8.2) L 09/28/17 03:42 Albumin 3.7 g/dL (3.9-5) L 09/28/17 03:42 Albumin/Globulin Ratio 1.7 % 09/28/17 03:42 Urine Color Yellow (Yellow) 09/28/17 03:30 Urine Turbidity Clear (Clear) 09/28/17 03:30 Urine pH 7.0 (5.0-7.0) 09/28/17 03:30 Ur Specific [place] 1.012 (1.003-1.030) 09/28/17 03:30 Urine Protein <15 mg/dl mg/dL (Negative) 09/28/17 03:30 Urine Glucose (UA) Neg mg/dL (Negative) 09/28/17 03:30 Urine Ketones Neg mg/dL (Negative) 09/28/17 03:30 Urine Blood Neg (Negative) 09/28/17 03:30 Urine Nitrite Neg (Negative) 09/28/17 03:30 Urine Bilirubin Neg (Negative) 09/28/17 03:30 Urine Urobilinogen < 2.0 mg/dL (<2.0) 09/28/17 03:30 Ur Leukocyte Esterase Neg (Negative) 09/28/17 03:30 Urine WBC (Auto) 1.0 /HPF (0.0-6.0) 09/28/17 03:30 Urine RBC (Auto) 1.0 /HPF (0.0-6.0) 09/28/17 03:30 U Epithel Cells (Auto) < 1.0 /HPF (0-13.0) 09/28/17 03:30 Blood Type A POSITIVE 09/28/17 04:00 Antibody Screen Negative 09/28/17 04:00 Crossmatch See Detail 09/28/17 04:00
[2017-09-29] MEDS: ZITHROMAX 500 MG in NACL 0.9% 250ML 250 ML IV SCH (12:00)
[2017-09-29] MEDS: PERCOCET 5/325 PO PRN (13:47)
[2017-09-29] MEDS ORDERED: NACL 0.9% 250ML 250 ML IV ONE (14:00)
[2017-09-29] MEDS: SODIUM CHLORIDE FLUSH SYRINGE 10 ML IV SCH (21:09)
[2017-09-30] MEDS: ROXICODONE PO PRN ×2 (01:05→14:53)
[2017-09-30] MEDS: DUONEB *Not for PRN Use IH SCH ×4 (01:58→19:41)
[2017-09-30] MEDS: NACL 0.9% 1000 ML 1,000 ML IV SCH (05:19)
[2017-09-30] MEDS: VALIUM PO PRN (05:23)
[2017-09-30] MEDS: PULMICORT IH SCH ×2 (07:53→19:41)
[2017-09-30 08:31] LABS: Hematocrit 25.9 % (30.3-42.9); Hemoglobin 7.8 gm/dl (10.1-14.3); Mean Corpuscular HGB Conc 30 % (30-34); Mean Corpuscular Volume 77 fl (79-97); Platelet Count 219 K/mm3 (140-440); Red Blood Count 3.36 M/mm3 (3.65-5.03); Red Cell Distribution Width 18.3 % (13.2-15.2)
[2017-09-30 08:32] LABS: Mean Corpuscular Hemoglobin 23 pg (28-32)
[2017-09-30 08:36] LABS: BUN/Creatinine Ratio 43; Blood Urea Nitrogen 17 mg/dL (7-17); Calcium 7.9 mg/dL (8.4-10.2); Hemolysis Index 5
[2017-09-30] MEDS: MS CONTIN ER PO SCH ×2 (10:14→21:19)
[2017-09-30] MEDS: PERCOCET 5/325 PO PRN ×2 (10:15→14:56)
[2017-09-30] MEDS: COLACE PO SCH ×2 (10:16→21:19)
[2017-09-30] MEDS: ELIQUIS PO SCH ×2 (10:16→21:19)
[2017-09-30] MEDS: HumaLOG SUB-Q SCH ×4 (10:17→21:29)
[2017-09-30] MEDS: PROTONIX PO SCH (10:17)
[2017-09-30] MEDS: NEURONTIN PO SCH ×2 (10:17→21:19)
[2017-09-30] MEDS: SODIUM CHLORIDE FLUSH SYRINGE 10 ML IV SCH ×2 (10:18→21:21)
[2017-09-30 11:29] LABS: Anisocytosis 1+; Basophils % (Manual) 0 % (0.0-1.8); Eosinophils % (Manual) 0 % (0.0-4.3); Hypochromasia 1+; Total Cells Counted 100
[2017-09-30 11:30] LABS: Platelet Estimate Cons
--- NOTE | 2017-09-30 13:49 | Consultation ---
History of Present Illness Consult date: 09/30/17 Requesting physician: MAGGIE GIL Reason for consult: COPD History of present illness: 72 yo and ongoing smoker admitted with increased SOB, wheezing, cough with white sputum, chest congestion. No fevers, chills, chest pain. Feeling a little better since admit. Ran out of the Trelegy samples I gave her in the office last visit, apparently did not get the Rx filled. Active Medications Acetaminophen (Tylenol) 650 mg PO Q4H PRN PRN Reason: Pain MILD(1-3)/Fever >100.5/MCKENZIE Albuterol (Proventil) 2.5 mg IH Q4H PRN PRN Reason: Shortness Of Breath Last Admin: 09/29/17 13:53 Dose: 2.5 mg Albuterol/Ipratropium (Duoneb *Not For Prn Use*) 1 ampul IH Q6HRT [facility] Last Admin: 09/30/17 07:53 Dose: 1 ampul Apixaban (Eliquis) 5 mg PO Q12HR [facility]; Protocol Last Admin: 09/30/17 10:16 Dose: 5 mg Budesonide (Pulmicort) 0.5 mg IH Q12HRT [facility] Last Admin: 09/30/17 07:53 Dose: 0.5 mg Dextrose (D50w (25gm) Syringe) 50 ml IV PRN PRN PRN Reason: Hypoglycemia Diazepam (Valium) 5 mg PO TID PRN PRN Reason: Spasms Last Admin: 09/30/17 05:23 Dose: 5 mg Docusate Sodium (Colace) 100 mg PO BID [facility] Last Admin: 09/30/17 10:16 Dose: 100 mg Gabapentin (Neurontin) 300 mg PO BID [facility] Last Admin: 09/30/17 10:17 Dose: 300 mg Azithromycin 500 mg/ Sodium (Chloride) 250 mls @ 250 mls/hr IV Q24H [facility]; Protocol Last Admin: 09/29/17 12:00 Dose: 250 mls/hr Insulin Glargine (Lantus) 10 units SUB-Q QHS [facility] Last Admin: 09/29/17 21:11 Dose: 10 units Insulin Human Lispro (Humalog) 0 unit SUB-Q ACHS [facility]; Protocol Last Admin: 09/30/17 10:17 Dose: 1 unit Methylprednisolone Sodium Succinate (Solu-Medrol) 60 mg IV QID [facility] Last Admin: 09/30/17 10:13 Dose: 60 mg Morphine Sulfate (Ms Contin Er) 30 mg PO BID [facility] Last Admin: 09/30/17 10:14 Dose: 30 mg Ondansetron HCl (Zofran) 4 mg IV Q8H PRN PRN Reason: Nausea And Vomiting Oxycodone HCl (Roxicodone) 5 mg PO Q4H PRN PRN Reason: Pain, Moderate (4-6) Last Admin: 09/30/17 01:05 Dose: 5 mg Oxycodone/Acetaminophen (Percocet 5/325) 1 tab PO Q4H PRN PRN Reason: Pain, Moderate (4-6) Last Admin: 09/30/17 10:15 Dose: 1 tab Pantoprazole Sodium (Protonix) 40 mg PO DAILY [facility] Last Admin: 09/30/17 10:17 Dose: 40 mg Sodium Chloride (Sodium Chloride Flush Syringe 10 Ml) 10 ml IV BID [facility] Last Admin: 09/30/17 10:18 Dose: 10 ml Sodium Chloride (Sodium Chloride Flush Syringe 10 Ml) 10 ml IV PRN PRN PRN Reason: LINE FLUSH Past History Past Medical History: COPD, diabetes, heart failure Past Surgical History: Other (throbectomy) Social history: smoking, full code. denies: alcohol abuse, prescription drug abuse, IV drug use Family history: no significant family history Medications and Allergies Allergies Allergy/AdvReac Type Severity Reaction Status Date / Time levofloxacin [From Levaquin] Allergy Rash Verified 02/27/13 19:34 sulfamethoxazole Allergy Hives Verified 11/11/14 11:38 [From Bactrim] trimethoprim [From Bactrim] Allergy Hives Verified 11/11/14 11:38 Home Medications Medication Instructions Recorded Confirmed Last Taken Type Insulin NPH/Regular [NovoLIN 70/30] 0 units SUB-Q PRN PRN 02/27/13 09/30/17 Unknown History Warfarin Sodium [Jantoven] 5 mg PO QDAY 02/27/13 09/30/17 06/13/14 12:00 History ALBUTEROL Inhaler [ProAir HFA 2 puff IH QID PRN 06/14/14 09/30/17 Unknown History Inhaler] Gabapentin 300 mg PO BID 06/14/14 09/30/17 Unknown History Esomeprazole Magnesium [NexIUM 20 mg PO QHS 07/27/14 09/30/17 Unknown History 24Hr] Active Meds: Active Medications Acetaminophen (Tylenol) 650 mg PO Q4H PRN PRN Reason: Pain MILD(1-3)/Fever >100.5/MCKENZIE Albuterol (Proventil) 2.5 mg IH Q4H PRN PRN Reason: Shortness Of Breath Last Admin: 09/29/17 13:53 Dose: 2.5 mg Albuterol/Ipratropium (Duoneb *Not For Prn Use*) 1 ampul IH Q6HRT [facility] Last Admin: 09/30/17 07:53 Dose: 1 ampul Apixaban (Eliquis) 5 mg PO Q12HR [facility]; Protocol Last Admin: 09/30/17 10:16 Dose: 5 mg Budesonide (Pulmicort) 0.5 mg IH Q12HRT [facility] Last Admin: 09/30/17 07:53 Dose: 0.5 mg Dextrose (D50w (25gm) Syringe) 50 ml IV PRN PRN PRN Reason: Hypoglycemia Diazepam (Valium) 5 mg PO TID PRN PRN Reason: Spasms Last Admin: 09/30/17 05:23 Dose: 5 mg Docusate Sodium (Colace) 100 mg PO BID [facility] Last Admin: 09/30/17 10:16 Dose: 100 mg Gabapentin (Neurontin) 300 mg PO BID [facility] Last Admin: 09/30/17 10:17 Dose: 300 mg Azithromycin 500 mg/ Sodium (Chloride) 250 mls @ 250 mls/hr IV Q24H [facility]; Protocol Last Admin: 09/29/17 12:00 Dose: 250 mls/hr Insulin Glargine (Lantus) 10 units SUB-Q QHS [facility] Last Admin: 09/29/17 21:11 Dose: 10 units Insulin Human Lispro (Humalog) 0 unit SUB-Q ACHS [facility]; Protocol Last Admin: 09/30/17 10:17 Dose: 1 unit Methylprednisolone Sodium Succinate (Solu-Medrol) 60 mg IV QID [facility] Last Admin: 09/30/17 10:13 Dose: 60 mg Morphine Sulfate (Ms Contin Er) 30 mg PO BID [facility] Last Admin: 09/30/17 10:14 Dose: 30 mg Ondansetron HCl (Zofran) 4 mg IV Q8H PRN PRN Reason: Nausea And Vomiting Oxycodone HCl (Roxicodone) 5 mg PO Q4H PRN PRN Reason: Pain, Moderate (4-6) Last Admin: 09/30/17 01:05 Dose: 5 mg Oxycodone/Acetaminophen (Percocet 5/325) 1 tab PO Q4H PRN PRN Reason: Pain, Moderate (4-6) Last Admin: 09/30/17 10:15 Dose: 1 tab Pantoprazole Sodium (Protonix) 40 mg PO DAILY [facility] Last Admin: 09/30/17 10:17 Dose: 40 mg Sodium Chloride (Sodium Chloride Flush Syringe 10 Ml) 10 ml IV BID [facility] Last Admin: 09/30/17 10:18 Dose: 10 ml Sodium Chloride (Sodium Chloride Flush Syringe 10 Ml) 10 ml IV PRN PRN PRN Reason: LINE FLUSH Review of Systems All systems: negative Physical Examination Vital signs: Vital Signs Pulse Resp BP Pulse Ox 118 H 35 H 113/54 95 09/28/17 03:07 09/28/17 03:07 09/28/17 03:07 09/28/17 03:07 General appearance: no acute distress, alert Eyes: non-icteric ENT: oropharynx moist Neck: supple Effort: normal Ascultation: Bilateral: diminished breath sounds, wheezes Cardiovascular: regular rate and rhythm (no mrg) Gastrointestinal: normoactive bowel sounds, soft, non-tender, non-distended Integumentary: normal Extremities: no cyanosis, no edema, pink and warm Musculoskeletal: no deformities normal mental status, non-focal exam, pupils equal and round, CN II-XII normal mood appropriate, affect normal Results - Laboratory Findings CBC and BMP: 09/30/17 07:33 09/30/17 07:33 ABG POC ABG pH 7.438 (7.35-7.45) 09/28/17 11:52 POC ABG pCO2 51.4 (35-45) H 09/28/17 11:52 POC ABG pO2 85 (80-105) 09/28/17 11:52 POC ABG HCO3 34.8 09/28/17 11:52 POC ABG Total CO2 36 09/28/17 11:52 POC ABG O2 Sat 97 09/28/17 11:52 Abnormal lab findings: Abnormal Labs 09/28/17 09/28/17 09/28/17 03:42 03:42 03:42 WBC 18.6 H RBC 3.51 L Hgb 7.9 L Hct 26.3 L MCV 75 L MCH 23 L RDW 19.0 H Seg Neuts % (Manual) 77.0 H Lymphocytes % (Manual) 5.0 L Nucleated RBC % 1.0 H Seg Neutrophils # Man 14.3 H Lymphocytes # (Manual) 0.9 L Basophils # (Manual) 0.2 H POC ABG pCO2 Sodium Chloride 95.0 L Carbon Dioxide 33 H Creatinine 0.4 L Glucose 202 H POC Glucose Hemoglobin A1c 6.9 H Calcium Total Protein 5.9 L Albumin 3.7 L Crossmatch 09/28/17 09/28/17 09/28/17 04:00 11:52 16:37 WBC RBC Hgb Hct MCV MCH RDW Seg Neuts % (Manual) Lymphocytes % (Manual) Nucleated RBC % Seg Neutrophils # Man Lymphocytes # (Manual) Basophils # (Manual) POC ABG pCO2 51.4 H Sodium Chloride Carbon Dioxide Creatinine Glucose POC Glucose 401 H Hemoglobin A1c Calcium Total Protein Albumin Crossmatch See Detail 09/28/17 09/29/17 09/29/17 20:53 05:42 05:42 WBC 17.3 H RBC 3.09 L Hgb 7.0 L Hct 23.3 L MCV 76 L MCH 23 L RDW 18.2 H Seg Neuts % (Manual) 91.0 H Lymphocytes % (Manual) 2.0 L Nucleated RBC % Seg Neutrophils # Man 15.7 H Lymphocytes # (Manual) 0.3 L Basophils # (Manual) POC ABG pCO2 Sodium Chloride Carbon Dioxide 31 H Creatinine 0.4 L Glucose 227 H POC Glucose 217 H Hemoglobin A1c Calcium 8.2 L Total Protein Albumin Crossmatch 09/29/17 09/29/17 09/29/17 05:46 11:13 15:58 WBC RBC Hgb Hct MCV MCH RDW Seg Neuts % (Manual) Lymphocytes % (Manual) Nucleated RBC % Seg Neutrophils # Man Lymphocytes # (Manual) Basophils # (Manual) POC ABG pCO2 Sodium Chloride Carbon Dioxide Creatinine Glucose POC Glucose 227 H 317 H 195 H Hemoglobin A1c Calcium Total Protein Albumin Crossmatch 09/29/17 09/30/17 09/30/17 20:27 05:31 07:33 WBC 15.6 H RBC 3.36 L Hgb 7.8 L Hct 25.9 L MCV 77 L MCH 23 L RDW 18.3 H Seg Neuts % (Manual) 95.0 H Lymphocytes % (Manual) 3.0 L Nucleated RBC % Seg Neutrophils # Man 14.8 H Lymphocytes # (Manual) 0.5 L Basophils # (Manual) POC ABG pCO2 Sodium Chloride Carbon Dioxide Creatinine Glucose POC Glucose 259 H 212 H Hemoglobin A1c Calcium Total Protein Albumin Crossmatch 09/30/17 09/30/17 07:33 11:37 WBC RBC Hgb Hct MCV MCH RDW Seg Neuts % (Manual) Lymphocytes % (Manual) Nucleated RBC % Seg Neutrophils # Man Lymphocytes # (Manual) Basophils # (Manual) POC ABG pCO2 Sodium 149 H D Chloride 111.8 H Carbon Dioxide Creatinine 0.4 L Glucose 168 H POC Glucose 249 H Hemoglobin A1c Calcium 7.9 L Total Protein Albumin Crossmatch - Diagnostic Findings Chest x-ray: report reviewed, image reviewed Assessment and Plan Imp: 1. Centrilobular emphysema 2. COPD exac. 3. Chronic respiratory failure, hypoxia/hypercapnea 4. Chronic nicotine dependence, cigs 5. Acute bronchitis 6. Microcytic anemia Rec: 1. Agree with current ABX, Solumedrol 2. Needs to stop smoking and has been counseled 3. Give her a new Rx for Trelegy Ellipta 100mcg 1 puff daily at d/c (she is poorly compliant w/ long-acting bronchodilators but has severe disease) 4. Consider further work-up for anemia including iron studies and eval. for GI blood loss Plan of care reviewed with patient, she understands/agrees Thanks for the consult. Will follow with you.
--- NOTE | 2017-09-30 14:42 | Progress Note ---
Assessment and Plan Assessment and plan: 72-year-old female was presented to the emergency department with complaints of I couldn't breathe. Patient has cough productive of greenish sputum and fever. Acute hypercapnic respiratory failure COPD exacerbation Sepsis secondary to pneumonitis; chest x-ray significant for COPD, patient had fever, tachycardia and tachypnea Diabetes mellitus with hyperglycemia Patient does history of DVT - Patient was placed on [place] oxygen, Solu-Medrol, IV antibiotics, nebulizers - Sliding scale insulin for diabetes - Continue her home medications Patient has anemia hemoglobin this morning was 7.8 S/P 1unit of packed RBC transfusion. Anemia work up in progress DVT prophylaxis - Continue Eliquis Disposition - Admit to telemetry floor History Interval history: Patient was seen and evaluated this morning, patient was still complaining shortness of breath. Hospitalist Physical - Physical exam Narrative exam: Patient is in mild respiratory distress. The patient appeared well nourished and normally developed. Vital signs as documented. Head exam is unremarkable. No scleral icterus . Neck is without jugular venous distension, thyromegaly, or carotid bruits. Lungs wheezing gone over the chest. Cardiac exam reveals regular rate and Rhythm. First and second heart sounds normal. No murmurs, rubs or gallops. Abdominal exam reveals normal bowel sounds, no masses, no organomegaly and no aortic enlargement. Extremities are nonedematous and both femoral and pedal pulses are normal. GRUBBER: Alert and oriented 3. No focal weakness. - Constitutional Vitals: Temp Pulse Resp BP Pulse Ox 97.6 F 70 20 122/63 96 09/30/17 12:00 09/30/17 12:00 09/30/17 11:31 09/30/17 11:31 09/30/17 11:31 Results - Labs CBC & Chem 7: 09/30/17 07:33 09/30/17 07:33 Labs: Laboratory Last Values WBC 15.6 K/mm3 (4.5-11.0) H 09/30/17 07:33 RBC 3.36 M/mm3 (3.65-5.03) L 09/30/17 07:33 Hgb 7.8 gm/dl (10.1-14.3) L 09/30/17 07:33 Hct 25.9 % (30.3-42.9) L 09/30/17 07:33 MCV 77 fl (79-97) L 09/30/17 07:33 MCH 23 pg (28-32) L 09/30/17 07:33 MCHC 30 % (30-34) 09/30/17 07:33 RDW 18.3 % (13.2-15.2) H 09/30/17 07:33 Plt Count 219 K/mm3 (140-440) 09/30/17 07:33 Add Manual Diff Complete 09/30/17 07:33 Total Counted 100 09/30/17 07:33 Seg Neutrophils % [employer] 09/29/17 05:42 Seg Neuts % (Manual) 95.0 % (40.0-70.0) H 09/30/17 07:33 Band Neutrophils % 0 % 09/30/17 07:33 Lymphocytes % (Manual) 3.0 % (13.4-35.0) L 09/30/17 07:33 Reactive Lymphs % (Man) 0 % 09/30/17 07:33 Monocytes % (Manual) 2.0 % (0.0-7.3) 09/30/17 07:33 Eosinophils % (Manual) 0 % (0.0-4.3) 09/30/17 07:33 Basophils % (Manual) 0 % (0.0-1.8) 09/30/17 07:33 Metamyelocytes % 0 % 09/30/17 07:33 Myelocytes % 0 % 09/30/17 07:33 Promyelocytes % 0 % 09/30/17 07:33 Blast Cells % 0 % 09/30/17 07:33 Nucleated RBC % Not Reportable 09/30/17 07:33 Seg Neutrophils # Man 14.8 K/mm3 (1.8-7.7) H 09/30/17 07:33 Band Neutrophils # 0.0 K/mm3 09/30/17 07:33 Lymphocytes # (Manual) 0.5 K/mm3 (1.2-5.4) L 09/30/17 07:33 Abs React Lymphs (Man) 0.0 K/mm3 09/30/17 07:33 Monocytes # (Manual) 0.3 K/mm3 (0.0-0.8) 09/30/17 07:33 Eosinophils # (Manual) 0.0 K/mm3 (0.0-0.4) 09/30/17 07:33 Basophils # (Manual) 0.0 K/mm3 (0.0-0.1) 09/30/17 07:33 Metamyelocytes # 0.0 K/mm3 09/30/17 07:33 Myelocytes # 0.0 K/mm3 09/30/17 07:33 Promyelocytes # 0.0 K/mm3 09/30/17 07:33 Blast Cells # 0.0 K/mm3 09/30/17 07:33 WBC Morphology Not Reportable 09/30/17 07:33 Hypersegmented Neuts Not Reportable 09/30/17 07:33 Hyposegmented Neuts Not Reportable 09/30/17 07:33 Hypogranular Neuts Not Reportable 09/30/17 07:33 Smudge Cells Not Reportable 09/30/17 07:33 Toxic Granulation Not Reportable 09/30/17 07:33 Toxic Vacuolation Not Reportable 09/30/17 07:33 Dohle Bodies Not Reportable 09/30/17 07:33 Pelger-Huet Anomaly Not Reportable 09/30/17 07:33 Jhon Rods Not Reportable 09/30/17 07:33 Platelet Estimate Cons 09/30/17 07:33 Clumped Platelets Not Reportable 09/30/17 07:33 Plt Clumps, EDTA Not Reportable 09/30/17 07:33 Large Platelets Not Reportable 09/30/17 07:33 Giant Platelets Not Reportable 09/30/17 07:33 Platelet Satelliting Not Reportable 09/30/17 07:33 Plt Morphology Comment Not Reportable 09/30/17 07:33 RBC Morphology Not Reportable 09/30/17 07:33 Dimorphic RBCs Not Reportable 09/30/17 07:33 Polychromasia Not Reportable 09/30/17 07:33 Hypochromasia 1+ 09/30/17 07:33 Poikilocytosis Not Reportable 09/30/17 07:33 Anisocytosis 1+ 09/30/17 07:33 Microcytosis Not Reportable 09/30/17 07:33 Macrocytosis Not Reportable 09/30/17 07:33 Spherocytes Not Reportable 09/30/17 07:33 Pappenheimer Bodies Not Reportable 09/30/17 07:33 Sickle Cells Not Reportable 09/30/17 07:33 Target Cells Not Reportable 09/30/17 07:33 Tear Drop Cells Not Reportable 09/30/17 07:33 Ovalocytes Not Reportable 09/30/17 07:33 Helmet Cells Not Reportable 09/30/17 07:33 [place] Bodies Not Reportable 09/30/17 07:33 [place] Rings Not Reportable 09/30/17 07:33 [place] Cells Not Reportable 09/30/17 07:33 Bite Cells Not Reportable 09/30/17 07:33 Crenated Cell Not Reportable 09/30/17 07:33 Elliptocytes Not Reportable 09/30/17 07:33 Acanthocytes (Spur) Not Reportable 09/30/17 07:33 Rouleaux Not Reportable 09/30/17 07:33 Hemoglobin C Crystals Not Reportable 09/30/17 07:33 Schistocytes Not Reportable 09/30/17 07:33 Malaria parasites Not Reportable 09/30/17 07:33 Rodney Bodies Not Reportable 09/30/17 07:33 Hem Pathologist Commnt No 09/30/17 07:33 POC ABG pH 7.438 (7.35-7.45) 09/28/17 11:52 POC ABG pCO2 51.4 (35-45) H 09/28/17 11:52 POC ABG pO2 85 (80-105) 09/28/17 11:52 POC ABG HCO3 34.8 09/28/17 11:52 POC ABG Total CO2 36 09/28/17 11:52 POC ABG O2 Sat 97 09/28/17 11:52 POC ABG Base Excess 11 09/28/17 11:52 FiO2 3 % 09/28/17 11:52 Sodium 149 mmol/L (137-145) H D 09/30/17 07:33 Potassium 4.4 mmol/L (3.6-5.0) 09/30/17 07:33 Chloride 111.8 mmol/L (98-107) H 09/30/17 07:33 Carbon Dioxide 28 mmol/L (22-30) 09/30/17 07:33 Anion Gap 14 mmol/L 09/30/17 07:33 BUN 17 mg/dL (7-17) 09/30/17 07:33 Creatinine 0.4 mg/dL (0.7-1.2) L 09/30/17 07:33 Estimated GFR > 60 ml/min 09/30/17 07:33 BUN/Creatinine Ratio 43 % 09/30/17 07:33 Glucose 168 mg/dL (65-100) H 09/30/17 07:33 POC Glucose 249 (70-105) H 09/30/17 11:37 Hemoglobin A1c 6.9 % (4-6) H 09/28/17 03:42 Lactic Acid 0.90 mmol/L (0.7-2.0) 09/28/17 07:46 Calcium 7.9 mg/dL (8.4-10.2) L 09/30/17 07:33 Total Bilirubin 0.30 mg/dL (0.1-1.2) 09/28/17 03:42 AST 13 units/L (5-40) 09/28/17 03:42 ALT 9 units/L (7-56) 09/28/17 03:42 Alkaline Phosphatase 84 units/L (35-129) 09/28/17 03:42 Troponin T < 0.010 ng/mL (0.00-0.029) 09/28/17 03:42 Total Protein 5.9 g/dL (6.3-8.2) L 09/28/17 03:42 Albumin 3.7 g/dL (3.9-5) L 09/28/17 03:42 Albumin/Globulin Ratio 1.7 % 09/28/17 03:42 Urine Color Yellow (Yellow) 09/28/17 03:30 Urine Turbidity Clear (Clear) 09/28/17 03:30 Urine pH 7.0 (5.0-7.0) 09/28/17 03:30 Ur Specific [place] 1.012 (1.003-1.030) 09/28/17 03:30 Urine Protein <15 mg/dl mg/dL (Negative) 09/28/17 03:30 Urine Glucose (UA) Neg mg/dL (Negative) 09/28/17 03:30 Urine Ketones Neg mg/dL (Negative) 09/28/17 03:30 Urine Blood Neg (Negative) 09/28/17 03:30 Urine Nitrite Neg (Negative) 09/28/17 03:30 Urine Bilirubin Neg (Negative) 09/28/17 03:30 Urine Urobilinogen < 2.0 mg/dL (<2.0) 09/28/17 03:30 Ur Leukocyte Esterase Neg (Negative) 09/28/17 03:30 Urine WBC (Auto) 1.0 /HPF (0.0-6.0) 09/28/17 03:30 Urine RBC (Auto) 1.0 /HPF (0.0-6.0) 09/28/17 03:30 U Epithel Cells (Auto) < 1.0 /HPF (0-13.0) 09/28/17 03:30 Blood Type A POSITIVE 09/28/17 04:00 Antibody Screen Negative 09/28/17 04:00 Crossmatch See Detail 09/28/17 04:00
[2017-09-30] MEDS: ZITHROMAX 500 MG in NACL 0.9% 250ML 250 ML IV SCH (14:48)
[2017-09-30 15:31] LABS: Iron 10 ug/dL (37-170); Total Iron Binding Capacity 329 mcg/dL (250-450)
[2017-09-30] MEDS: LANTUS SUB-Q SCH (21:23)
[2017-10-01] MEDS: DUONEB *Not for PRN Use IH SCH ×4 (01:50→20:11)
[2017-10-01] MEDS: PERCOCET 5/325 PO PRN ×4 (03:16→20:56)
[2017-10-01] MEDS: ROXICODONE PO PRN ×4 (03:16→20:55)
[2017-10-01] MEDS: PULMICORT IH SCH ×2 (08:50→20:10)
[2017-10-01] MEDS: HumaLOG SUB-Q SCH ×4 (09:04→22:31)
[2017-10-01] MEDS: MS CONTIN ER PO SCH ×2 (09:07→22:26)
[2017-10-01] MEDS: PROTONIX PO SCH ×2 (09:09→15:25)
[2017-10-01] MEDS: COLACE PO SCH ×2 (09:09→22:27)
[2017-10-01] MEDS: NEURONTIN PO SCH ×2 (09:10→22:28)
[2017-10-01] MEDS: ELIQUIS PO SCH ×2 (09:10→22:27)
[2017-10-01 09:57] LABS: Basophils % (Auto) 0.1 % (0.0-1.8); Hematocrit 30.6 % (30.3-42.9); Hemoglobin 9.3 gm/dl (10.1-14.3); Lymphocytes # (Auto) 0.9 K/mm3 (1.2-5.4); Lymphocytes % (Auto) 9.9 % (13.4-35.0); Mean Corpuscular HGB Conc 30 % (30-34); Mean Corpuscular Volume 76 fl (79-97); Monocytes # (Auto) 0.5 K/mm3 (0.0-0.8); Monocytes % (Auto) 5.1 % (0.0-7.3); Platelet Count 246 K/mm3 (140-440); Red Blood Count 4.02 M/mm3 (3.65-5.03); Red Cell Distribution Width 18.7 % (13.2-15.2)
[2017-10-01 10:00] LABS: Mean Corpuscular Hemoglobin 23 pg (28-32)
[2017-10-01] MEDS ORDERED: ZITHROMAX PO SCH (10:00)
[2017-10-01 10:18] LABS: BUN/Creatinine Ratio 40; Blood Urea Nitrogen 16 mg/dL (7-17); Calcium 8.1 mg/dL (8.4-10.2); Hemolysis Index 5
--- NOTE | 2017-10-01 13:34 | Progress Note ---
Assessment and Plan Assessment and plan: 72-year-old female was presented to the emergency department with complaints of I couldn't breathe. Patient has cough productive of greenish sputum and fever. Acute hypercapnic respiratory failure COPD exacerbation Sepsis secondary to pneumonitis; chest x-ray significant for COPD, patient had fever, tachycardia and tachypnea Diabetes mellitus with hyperglycemia Patient does history of DVT-? - Patient was placed on [place] oxygen, Solu-Medrol, IV antibiotics, nebulizers - Sliding scale insulin for diabetes - Continue her home medications Patient has anemia hemoglobin this morning was 7.8 S/P 1unit of packed RBC transfusion. Anemia work up in progress DVT prophylaxis - Continue Eliquis Disposition - Admit to telemetry floor Hospitalist Physical - Constitutional Vitals: Temp Pulse Resp BP Pulse Ox 98.8 F 90 18 150/69 98 10/01/17 04:59 10/01/17 09:03 10/01/17 09:03 10/01/17 04:59 10/01/17 09:03 Results - Labs CBC & Chem 7: 10/01/17 09:29 10/01/17 09:29 Labs: Laboratory Last Values WBC 9.4 K/mm3 (4.5-11.0) 10/01/17 09:29 RBC 4.02 M/mm3 (3.65-5.03) 10/01/17 09:29 Hgb 9.3 gm/dl (10.1-14.3) L 10/01/17 09:29 Hct 30.6 % (30.3-42.9) 10/01/17 09:29 MCV 76 fl (79-97) L 10/01/17 09:29 MCH 23 pg (28-32) L 10/01/17 09:29 MCHC 30 % (30-34) 10/01/17 09:29 RDW 18.7 % (13.2-15.2) H 10/01/17 09:29 Plt Count 246 K/mm3 (140-440) 10/01/17 09:29 Lymph % (Auto) 9.9 % (13.4-35.0) L 10/01/17 09:29 [place] % (Auto) 5.1 % (0.0-7.3) 10/01/17 09:29 Eos % (Auto) 0.0 % (0.0-4.3) 10/01/17 09:29 Baso % (Auto) 0.1 % (0.0-1.8) 10/01/17 09:29 Lymph # 0.9 K/mm3 (1.2-5.4) L 10/01/17 09:29 [place] # 0.5 K/mm3 (0.0-0.8) 10/01/17 09:29 Eos # 0.0 K/mm3 (0.0-0.4) 10/01/17 09:29 Baso # 0.0 K/mm3 (0.0-0.1) 10/01/17 09:29 Add Manual Diff Complete 09/30/17 07:33 Total Counted 100 09/30/17 07:33 Seg Neutrophils % 84.9 % (40.0-70.0) H 10/01/17 09:29 Seg Neuts % (Manual) 95.0 % (40.0-70.0) H 09/30/17 07:33 Band Neutrophils % 0 % 09/30/17 07:33 Lymphocytes % (Manual) 3.0 % (13.4-35.0) L 09/30/17 07:33 Reactive Lymphs % (Man) 0 % 09/30/17 07:33 Monocytes % (Manual) 2.0 % (0.0-7.3) 09/30/17 07:33 Eosinophils % (Manual) 0 % (0.0-4.3) 09/30/17 07:33 Basophils % (Manual) 0 % (0.0-1.8) 09/30/17 07:33 Metamyelocytes % 0 % 09/30/17 07:33 Myelocytes % 0 % 09/30/17 07:33 Promyelocytes % 0 % 09/30/17 07:33 Blast Cells % 0 % 09/30/17 07:33 Nucleated RBC % Not Reportable 09/30/17 07:33 Seg Neutrophils # 8.0 K/mm3 (1.8-7.7) H 10/01/17 09:29 Seg Neutrophils # Man 14.8 K/mm3 (1.8-7.7) H 09/30/17 07:33 Band Neutrophils # 0.0 K/mm3 09/30/17 07:33 Lymphocytes # (Manual) 0.5 K/mm3 (1.2-5.4) L 09/30/17 07:33 Abs React Lymphs (Man) 0.0 K/mm3 09/30/17 07:33 Monocytes # (Manual) 0.3 K/mm3 (0.0-0.8) 09/30/17 07:33 Eosinophils # (Manual) 0.0 K/mm3 (0.0-0.4) 09/30/17 07:33 Basophils # (Manual) 0.0 K/mm3 (0.0-0.1) 09/30/17 07:33 Metamyelocytes # 0.0 K/mm3 09/30/17 07:33 Myelocytes # 0.0 K/mm3 09/30/17 07:33 Promyelocytes # 0.0 K/mm3 09/30/17 07:33 Blast Cells # 0.0 K/mm3 09/30/17 07:33 WBC Morphology Not Reportable 09/30/17 07:33 Hypersegmented Neuts Not Reportable 09/30/17 07:33 Hyposegmented Neuts Not Reportable 09/30/17 07:33 Hypogranular Neuts Not Reportable 09/30/17 07:33 Smudge Cells Not Reportable 09/30/17 07:33 Toxic Granulation Not Reportable 09/30/17 07:33 Toxic Vacuolation Not Reportable 09/30/17 07:33 Dohle Bodies Not Reportable 09/30/17 07:33 Pelger-Huet Anomaly Not Reportable 09/30/17 07:33 Jhon Rods Not Reportable 09/30/17 07:33 Platelet Estimate Cons 09/30/17 07:33 Clumped Platelets Not Reportable 09/30/17 07:33 Plt Clumps, EDTA Not Reportable 09/30/17 07:33 Large Platelets Not Reportable 09/30/17 07:33 Giant Platelets Not Reportable 09/30/17 07:33 Platelet Satelliting Not Reportable 09/30/17 07:33 Plt Morphology Comment Not Reportable 09/30/17 07:33 RBC Morphology Not Reportable 09/30/17 07:33 Dimorphic RBCs Not Reportable 09/30/17 07:33 Polychromasia Not Reportable 09/30/17 07:33 Hypochromasia 1+ 09/30/17 07:33 Poikilocytosis Not Reportable 09/30/17 07:33 Anisocytosis 1+ 09/30/17 07:33 Microcytosis Not Reportable 09/30/17 07:33 Macrocytosis Not Reportable 09/30/17 07:33 Spherocytes Not Reportable 09/30/17 07:33 Pappenheimer Bodies Not Reportable 09/30/17 07:33 Sickle Cells Not Reportable 09/30/17 07:33 Target Cells Not Reportable 09/30/17 07:33 Tear Drop Cells Not Reportable 09/30/17 07:33 Ovalocytes Not Reportable 09/30/17 07:33 Helmet Cells Not Reportable 09/30/17 07:33 [place]on-[place] Bodies Not Reportable 09/30/17 07:33 Sinai Rings Not Reportable 09/30/17 07:33 Brandyn Cells Not Reportable 09/30/17 07:33 Bite Cells Not Reportable 09/30/17 07:33 Crenated Cell Not Reportable 09/30/17 07:33 Elliptocytes Not Reportable 09/30/17 07:33 Acanthocytes (Spur) Not Reportable 09/30/17 07:33 Rouleaux Not Reportable 09/30/17 07:33 Hemoglobin C Crystals Not Reportable 09/30/17 07:33 Schistocytes Not Reportable 09/30/17 07:33 Malaria parasites Not Reportable 09/30/17 07:33 Rodney Bodies Not Reportable 09/30/17 07:33 Hem Pathologist Commnt No 09/30/17 07:33 POC ABG pH 7.438 (7.35-7.45) 09/28/17 11:52 POC ABG pCO2 51.4 (35-45) H 09/28/17 11:52 POC ABG pO2 85 (80-105) 09/28/17 11:52 POC ABG HCO3 34.8 09/28/17 11:52 POC ABG Total CO2 36 09/28/17 11:52 POC ABG O2 Sat 97 09/28/17 11:52 POC ABG Base Excess 11 09/28/17 11:52 FiO2 3 % 09/28/17 11:52 Sodium 143 mmol/L (137-145) 10/01/17 09:29 Potassium 4.3 mmol/L (3.6-5.0) 10/01/17 09:29 Chloride 102.9 mmol/L (98-107) 10/01/17 09:29 Carbon Dioxide 25 mmol/L (22-30) 10/01/17 09:29 Anion Gap 19 mmol/L 10/01/17 09:29 BUN 16 mg/dL (7-17) 10/01/17 09:29 Creatinine 0.4 mg/dL (0.7-1.2) L 10/01/17 09:29 Estimated GFR > 60 ml/min 10/01/17 09:29 BUN/Creatinine Ratio 40 % 10/01/17 09:29 Glucose 227 mg/dL (65-100) H 10/01/17 09:29 POC Glucose 241 (70-105) H 10/01/17 11:52 Hemoglobin A1c 6.9 % (4-6) H 09/28/17 03:42 Lactic Acid 0.90 mmol/L (0.7-2.0) 09/28/17 07:46 Calcium 8.1 mg/dL (8.4-10.2) L 10/01/17 09:29 Iron 10 ug/dL (37-170) L 09/30/17 14:51 TIBC 329 mcg/dL (250-450) 09/30/17 14:51 Ferritin 15.2 ng/mL (13.0-400.0) 09/30/17 14:51 Total Bilirubin 0.30 mg/dL (0.1-1.2) 09/28/17 03:42 AST 13 units/L (5-40) 09/28/17 03:42 ALT 9 units/L (7-56) 09/28/17 03:42 Alkaline Phosphatase 84 units/L (35-129) 09/28/17 03:42 Troponin T < 0.010 ng/mL (0.00-0.029) 09/28/17 03:42 Total Protein 5.9 g/dL (6.3-8.2) L 09/28/17 03:42 Albumin 3.7 g/dL (3.9-5) L 09/28/17 03:42 Albumin/Globulin Ratio 1.7 % 09/28/17 03:42 Urine Color Yellow (Yellow) 09/28/17 03:30 Urine Turbidity Clear (Clear) 09/28/17 03:30 Urine pH 7.0 (5.0-7.0) 09/28/17 03:30 Ur Specific [place] 1.012 (1.003-1.030) 09/28/17 03:30 Urine Protein <15 mg/dl mg/dL (Negative) 09/28/17 03:30 Urine Glucose (UA) Neg mg/dL (Negative) 09/28/17 03:30 Urine Ketones Neg mg/dL (Negative) 09/28/17 03:30 Urine Blood Neg (Negative) 09/28/17 03:30 Urine Nitrite Neg (Negative) 09/28/17 03:30 Urine Bilirubin Neg (Negative) 09/28/17 03:30 Urine Urobilinogen < 2.0 mg/dL (<2.0) 09/28/17 03:30 Ur Leukocyte Esterase Neg (Negative) 09/28/17 03:30 Urine WBC (Auto) 1.0 /HPF (0.0-6.0) 09/28/17 03:30 Urine RBC (Auto) 1.0 /HPF (0.0-6.0) 09/28/17 03:30 U Epithel Cells (Auto) < 1.0 /HPF (0-13.0) 09/28/17 03:30 Blood Type A POSITIVE 09/28/17 04:00 Antibody Screen Negative 09/28/17 04:00 Crossmatch See Detail 09/28/17 04:00
--- NOTE | 2017-10-01 13:59 | Progress Note ---
Assessment and Plan Imp: 1. Centrilobular emphysema 2. COPD exac. 3. Chronic respiratory failure, hypoxia/hypercapnea 4. Chronic nicotine dependence, cigs 5. Acute bronchitis 6. Microcytic anemia Rec: 1. Finish 5-7 days of Zithromax; taper Solumedrol; at d/c send out on Prednisone 40mg x 3 days, 30mg x 3 days, 20mg x 3 days, 10mg x 3 days 2. Needs to stop smoking and has been counseled -> recommend Rx for Nicotine patch 21mg daily at d/c; prognosis is poor if she continues to smoke, she understands 3. Give her a new Rx for Trelegy Ellipta 100mcg 1 puff daily at d/c (she is poorly compliant w/ long-acting bronchodilators but has severe disease) 4. Consider further work-up for anemia including iron studies and eval. for GI blood loss 5. Okay for d/c planning pulm-resendiz Plan of care reviewed with patient, she understands/agrees Subjective Date of service: 10/01/17 Principal diagnosis: copd Interval history: No events. Awake, alert. On NC. Ambulated in [place] with PT. SOB and wheezing better. Wants to go home. Active Medications Acetaminophen (Tylenol) 650 mg PO Q4H PRN PRN Reason: Pain MILD(1-3)/Fever >100.5/MCKENZIE Albuterol (Proventil) 2.5 mg IH Q4H PRN PRN Reason: Shortness Of Breath Last Admin: 09/29/17 13:53 Dose: 2.5 mg Albuterol/Ipratropium (Duoneb *Not For Prn Use*) [address] [facility] Last Admin: 10/01/17 08:50 Dose: 1 ampul Apixaban (Eliquis) [address] [facility]; Protocol Last Admin: 10/01/17 09:10 Dose: 5 mg Azithromycin (Zithromax) [address] [facility] Last Admin: 10/01/17 09:10 Dose: 500 mg Budesonide (Pulmicort) 0.[address] [facility] Last Admin: 10/01/17 08:50 Dose: 0.5 mg Dextrose (D50w (25gm) Syringe) 50 ml IV PRN PRN PRN Reason: Hypoglycemia Diazepam (Valium) 5 mg PO TID PRN PRN Reason: Spasms Last Admin: 09/30/17 05:23 Dose: 5 mg Docusate Sodium (Colace) [address] [facility] Last Admin: 10/01/17 09:09 Dose: 100 mg Gabapentin (Neurontin) [address] [facility] Last Admin: 10/01/17 09:10 Dose: 300 mg Insulin Glargine (Lantus) 15 units SUB-Q QHS [facility] Last Admin: 09/30/17 21:23 Dose: 15 units Insulin Human Lispro (Humalog) 0 unit SUB-Q ACHS [facility]; Protocol Last Admin: 10/01/17 13:27 Dose: 4 unit Methylprednisolone Sodium Succinate (Solu-Medrol) [address] [facility] Morphine Sulfate (Ms Contin Er) [address] [facility] Last Admin: 10/01/17 09:07 Dose: 30 mg Ondansetron HCl (Zofran) 4 mg IV Q8H PRN PRN Reason: Nausea And Vomiting Oxycodone HCl (Roxicodone) 5 mg PO Q4H PRN PRN Reason: Pain, Moderate (4-6) Last Admin: 10/01/17 09:05 Dose: 5 mg Oxycodone/Acetaminophen (Percocet 5/325) 1 tab PO Q4H PRN PRN Reason: Pain, Moderate (4-6) Last Admin: 10/01/17 09:07 Dose: 1 tab Pantoprazole Sodium (Protonix) [address] [facility] Last Admin: 10/01/17 09:09 Dose: 40 mg Sodium Chloride (Sodium Chloride Flush Syringe 10 Ml) [address] [facility] Last Admin: 09/30/17 21:21 Dose: 10 ml Sodium Chloride (Sodium Chloride Flush Syringe 10 Ml) 10 ml IV PRN PRN PRN Reason: LINE FLUSH Objective Vital Signs - 12hr 10/01/17 10/01/17 10/01/17 02:06 03:16 04:16 Temperature Pulse Rate Pulse Rate [ 105 H Anterior Bilateral Throughout] Pulse Rate [ Anterior Left Bases] Pulse Rate [ Anterior Right Throughout] Respiratory 20 20 Rate Respiratory 20 Rate [Anterior Bilateral Throughout] Respiratory Rate [Anterior Left Bases] Respiratory Rate [Anterior Right Throughout] Blood Pressure O2 Sat by Pulse Oximetry 10/01/17 10/01/1718 04:59 08:50 09:03 Temperature 98.8 F Pulse Rate 88 Pulse Rate [ 97 H 90 Anterior Bilateral Throughout] Pulse Rate [ 97 H 90 Anterior Left Bases] Pulse Rate [ 97 H 90 Anterior Right Throughout] Respiratory 20 Rate Respiratory 20 18 Rate [Anterior Bilateral Throughout] Respiratory 20 18 Rate [Anterior Left Bases] Respiratory 20 18 Rate [Anterior Right Throughout] Blood Pressure 150/69 O2 Sat by Pulse 96 98 Oximetry Constitutional: no acute distress, alert Eyes: non-icteric ENT: oropharynx moist Neck: supple Effort: normal Ascultation: Bilateral: diminished breath sounds, wheezes (better) Cardiovascular: regular rate and rhythm (no mrg) Gastrointestinal: normoactive bowel sounds, soft, non-tender, non-distended Integumentary: normal Extremities: no cyanosis, no edema, pink and warm Neurologic: normal mental status, non-focal exam, pupils equal and round, CN II- XII normal Psychiatric: mood appropriate, affect normal CBC and BMP: 10/01/17 09:29 10/01/17 09:29 ABG, PT/INR, D-dimer: ABG POC ABG pH 7.438 (7.35-7.45) 09/28/17 11:52 POC ABG pCO2 51.4 (35-45) H 09/28/17 11:52 POC ABG pO2 85 (80-105) 09/28/17 11:52 POC ABG HCO3 34.8 09/28/17 11:52 POC ABG Total CO2 36 09/28/17 11:52 POC ABG O2 Sat 97 09/28/17 11:52 Abnormal lab findings: Abnormal Labs 09/28/17 09/28/17 09/28/17 03:42 03:42 03:42 WBC 18.6 H RBC 3.51 L Hgb 7.9 L Hct 26.3 L MCV 75 L MCH 23 L RDW 19.0 H Lymph % (Auto) Lymph # Seg Neutrophils % Seg Neuts % (Manual) 77.0 H Lymphocytes % (Manual) 5.0 L Nucleated RBC % 1.0 H Seg Neutrophils # Seg Neutrophils # Man 14.3 H Lymphocytes # (Manual) 0.9 L Basophils # (Manual) 0.2 H POC ABG pCO2 Sodium Chloride 95.0 L Carbon Dioxide 33 H Creatinine 0.4 L Glucose 202 H POC Glucose Hemoglobin A1c 6.9 H Calcium Iron Total Protein 5.9 L Albumin 3.7 L Crossmatch 09/28/17 09/28/17 09/28/17 04:00 11:52 16:37 WBC RBC Hgb Hct MCV MCH RDW Lymph % (Auto) Lymph # Seg Neutrophils % Seg Neuts % (Manual) Lymphocytes % (Manual) Nucleated RBC % Seg Neutrophils # Seg Neutrophils # Man Lymphocytes # (Manual) Basophils # (Manual) POC ABG pCO2 51.4 H Sodium Chloride Carbon Dioxide Creatinine Glucose POC Glucose 401 H Hemoglobin A1c Calcium Iron Total Protein Albumin Crossmatch See Detail 09/28/17 09/29/17 09/29/17 20:53 05:42 05:42 WBC 17.3 H RBC 3.09 L Hgb 7.0 L Hct 23.3 L MCV 76 L MCH 23 L RDW 18.2 H Lymph % (Auto) Lymph # Seg Neutrophils % Seg Neuts % (Manual) 91.0 H Lymphocytes % (Manual) 2.0 L Nucleated RBC % Seg Neutrophils # Seg Neutrophils # Man 15.7 H Lymphocytes # (Manual) 0.3 L Basophils # (Manual) POC ABG pCO2 Sodium Chloride Carbon Dioxide 31 H Creatinine 0.4 L Glucose 227 H POC Glucose 217 H Hemoglobin A1c Calcium 8.2 L Iron Total Protein Albumin Crossmatch 09/29/17 09/29/17 09/29/17 05:46 11:13 15:58 WBC RBC Hgb Hct MCV MCH RDW Lymph % (Auto) Lymph # Seg Neutrophils % Seg Neuts % (Manual) Lymphocytes % (Manual) Nucleated RBC % Seg Neutrophils # Seg Neutrophils # Man Lymphocytes # (Manual) Basophils # (Manual) POC ABG pCO2 Sodium Chloride Carbon Dioxide Creatinine Glucose POC Glucose 227 H 317 H 195 H Hemoglobin A1c Calcium Iron Total Protein Albumin Crossmatch 09/29/17 09/30/17 09/30/17 20:27 05:31 07:33 WBC 15.6 H RBC 3.36 L Hgb 7.8 L Hct 25.9 L MCV 77 L MCH 23 L RDW 18.3 H Lymph % (Auto) Lymph # Seg Neutrophils % Seg Neuts % (Manual) 95.0 H Lymphocytes % (Manual) 3.0 L Nucleated RBC % Seg Neutrophils # Seg Neutrophils # Man 14.8 H Lymphocytes # (Manual) 0.5 L Basophils # (Manual) POC ABG pCO2 Sodium Chloride Carbon Dioxide Creatinine Glucose POC Glucose 259 H 212 H Hemoglobin A1c Calcium Iron Total Protein Albumin Crossmatch 09/30/17 09/30/17 09/30/17 07:33 11:37 14:51 WBC RBC Hgb Hct MCV MCH RDW Lymph % (Auto) Lymph # Seg Neutrophils % Seg Neuts % (Manual) Lymphocytes % (Manual) Nucleated RBC % Seg Neutrophils # Seg Neutrophils # Man Lymphocytes # (Manual) Basophils # (Manual) POC ABG pCO2 Sodium 149 H D Chloride 111.8 H Carbon Dioxide Creatinine 0.4 L Glucose 168 H POC Glucose 249 H Hemoglobin A1c Calcium 7.9 L Iron 10 L Total Protein Albumin Crossmatch 09/30/17 09/30/17 10/01/17 16:25 21:25 08:36 WBC RBC Hgb Hct MCV MCH RDW Lymph % (Auto) Lymph # Seg Neutrophils % Seg Neuts % (Manual) Lymphocytes % (Manual) Nucleated RBC % Seg Neutrophils # Seg Neutrophils # Man Lymphocytes # (Manual) Basophils # (Manual) POC ABG pCO2 Sodium Chloride Carbon Dioxide Creatinine Glucose POC Glucose 269 H 181 H 178 H Hemoglobin A1c Calcium Iron Total Protein Albumin Crossmatch 10/01/17 10/01/17 10/01/17 09:29 09:29 11:52 WBC RBC Hgb 9.3 L Hct MCV 76 L MCH 23 L RDW 18.7 H Lymph % (Auto) 9.9 L Lymph # 0.9 L Seg Neutrophils % 84.9 H Seg Neuts % (Manual) Lymphocytes % (Manual) Nucleated RBC % Seg Neutrophils # 8.0 H Seg Neutrophils # Man Lymphocytes # (Manual) Basophils # (Manual) POC ABG pCO2 Sodium Chloride Carbon Dioxide Creatinine 0.4 L Glucose 227 H POC Glucose 241 H Hemoglobin A1c Calcium 8.1 L Iron Total Protein Albumin Crossmatch Chest x-ray: report reviewed, image reviewed
[2017-10-01] MEDS: SODIUM CHLORIDE FLUSH SYRINGE 10 ML IV SCH ×3 (15:09→22:29)
--- NOTE | 2017-10-01 16:21 | Discharge Summary ---
Providers - Providers Date of Admission: 09/28/17 09:18 Attending physician: JOSELIN DRAKE MD 09/28/17 19:31 Consult to Wound/ET Nurse [CONS] Routine Reason For Exam: wound eval stage II buttocks Physical Therapy Evaluation and Treat [CONS] Routine Comment: Reason For Exam: weakness Primary care physician: GISELE TABARES Hospitalization Reason for admission: COPD exacerbation Condition: Stable Hospital course: 72-year-old female was presented to the emergency department with complaints of I couldn't breathe. Patient has cough productive of greenish sputum and fever. She was treated for sepsis secondary to pneumonia with acute hypercapnic respiratory failure secondary to central lobar emphysema. Pulmonology also to see the patient. She was noted to have microcytic anemia ( 1 units of packed red blood cell. Recommendation is that she follows up with vendor analyst outpatient. We did have extensive discussion about tobacco use patient verbalized understanding. She was placed on nicotine patch at discharge. She understands that she does have poor prognosis if she continues to smoke. Condition at the time of Discharge Is Fair Acute on chronic hypoxic/ hypercapnic respiratory failure COPD exacerbation Sepsis secondary to pneumonitis Diabetes mellitus with hyperglycemia Patient does history of DVT Microcytic anemia Centrilobular emphysema Chronic nicotine dependence, cigs Acute bronchitis Disposition: [id number] HOME UNDER HOME [facility] Time spent for discharge: 35 Core Measure Documentation - Palliative Care Palliative Care/ Comfort Measures: Not Applicable - Core Measures Any of the following diagnoses?: none - VTE Discharge Requirements Deep Vein Thrombosis/Pulmonary Embolism Present on Admission: No Exam - Physical Exam Narrative exam: VITAL SIGNS: Reviewed. GENERAL: The patient appeared chronically ill appearing. Vital signs as documented. HEAD: No signs of head trauma. EYES: Pupils are equal. Extraocular motions intact. EARS: Hearing grossly intact. MOUTH: Oropharynx is normal. NECK: No adenopathy, no JVD. CHEST: Chest with diminished bilaterally with mild expiratory wheeze improved per documentation breath sounds bilaterally. CARDIAC: Regular rate and rhythm. S1 and S2, without murmurs, gallops, or rubs. VASCULAR: Trace Edema. Peripheral pulses normal and equal in all extremities. ABDOMEN: Soft, without detectable tenderness. No sign of distention. No rebound or guarding, and no masses palpated. Bowel Sounds normal. MUSCULOSKELETAL: Good range of motion of all major joints. Extremities without clubbing, cyanosis. trace edema. NEUROLOGIC EXAM: Alert and oriented x 3. No focal sensory or strength deficits. Speech normal. Follows commands. PSYCHIATRIC: Mood normal. SKIN: Chronic venous changes - Constitutional Vitals: Temp Pulse Resp BP Pulse Ox 98.8 F 92 H 18 150/69 98 10/01/17 04:59 10/01/17 14:18 10/01/17 14:18 10/01/17 04:59 10/01/17 09:03 Plan Activity: advance as tolerated, fall precautions Diet: low fat Special Instructions: record daily BP diary, smoking cessation, physical therapy , home oxygen via (nasal cannula @ 2 liters per minute), home health RN Durable Medical Equipment Needed Upon Discharge: Oxygen Follow up with: GISELE TABARES MD [Primary Care Provider] - 3-5 Days YAYA BURNETT MD [Staff Physician] - 7 Days Prescriptions: Apixaban [Eliquis] 5 mg PO Q12HR #30 tablet Azithromycin [Zithromax TAB] 500 mg PO QDAY #5 tablet Fluticasone/Vilanterol [Breo Ellipta 100-25 Mcg INH] 1 each IH BID 30 Days [email or web address] Nicotine [Habitrol] 21 mg TD DAILY #14 patch predniSONE [Deltasone] 10 mg PO .TAPER #48 tab
[2017-10-01] MEDS ORDERED: LASIX IV SCH (17:00)
[2017-10-01 20:55] VITALS: BP 123/59
[2017-10-01] MEDS: LANTUS SUB-Q SCH (22:30)
[2017-10-02] MEDS ORDERED: DUONEB *Not for PRN Use IH SCH (08:00)
== END 2017-10-01 23:15 | disposition home health service (06) | DRG 871 ==
LOC: ED 02:58 → 4A 09:18
PROVIDERS: ADMIT Internal Medicine; ATTEND Internal Medicine
PROC: 4A033R1 Measurement of Arterial Saturation, Peripheral, Percutaneous Approach (ICD-10-PCS; 2017-09-28)
PROC: 30233N1 Transfusion of Nonautologous Red Blood Cells into Peripheral Vein, Percutaneous Approach (ICD-10-PCS; principal; 2017-09-29)
DX: A41.9 Sepsis, unspecified organism (principal); J18.9 Pneumonia, unspecified organism; J96.21 Acute and chronic respiratory failure with hypoxia; J96.22 Acute and chronic respiratory failure with hypercapnia; J44.1 Chronic obstructive pulmonary disease with (acute) exacerbation; J44.0 Chronic obstructive pulmonary disease with (acute) lower respiratory infection; D50.9 Iron deficiency anemia, unspecified; E11.65 Type 2 diabetes mellitus with hyperglycemia; I50.9 Heart failure, unspecified; F17.210 Nicotine dependence, cigarettes, uncomplicated; J20.9 Acute bronchitis, unspecified; Z85.3 Personal history of malignant neoplasm of breast; Z79.4 Long term (current) use of insulin; Z88.2 Allergy status to sulfonamides; Z90.12 Acquired absence of left breast and nipple; Z86.718 Personal history of other venous thrombosis and embolism; Z79.01 Long term (current) use of anticoagulants
CPT/HCPCS: 36415; 36600; 71045; 80048; 80053; 81001; 82140; 82728; 82803; 82962; 83036; 83550; 84484; 85007; 85025; 86850; 86900; 86901; 86920; 87040; 93005; 93010; 94640; 94760; G8978-GP; G8979-GP; J0456; J0696; J1815; J1940; J2543; J2920; J7030; J7050; P9016